=== PATIENT | male | born 1990 | race Caucasian/White ===

== ENCOUNTER → 2024-07-09 14:24 | Outpatient (AMB) | payer OTHER, SELFPAY ==
--- NOTE | 2024-07-09 14:26 | A.OFFVIS_ITS ---
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 She helped us with interpretation today. He complains on pain in the lower back with radiation to the left lower extremity. He reports that his pain is 8/10 and he has numbness corresponding to the pain sensation. He reports pain spreading in the lateral and posterior surfaces of the thigh and the lower leg to the level of the ankle but not below that level. 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 He was evaluated in [facility] and severe disc protrusion with spinal canal stenosis was found on the MRI at L4-[address] Ирина Gonzales performed laminotomy and diskectomy for this patient after the procedure the MRI was free from nerve root compressions, there were no spinal canal stenosis. There are some scar tissues at the area of the surgery. The full report of the MRI dictated as below. Dr. Gonzales referred patient to me with diagnosis of sacroiliitis left sacroiliac joint pain. Because of his pain this patient can not sleep normally he can not do daily activities he can take care of himself, but he can not function normally. Currently he is unemployed his case is workman's comp case. He is currently taking oxycodone 5 mg twice a day prescribed by PCP to control his pain. He reports his pain in terms of tissue damage as hurting radiating and numbing sensation. He had extensive physical therapy after surgery he had images MRI of the lumbar spine image dictation is available. He never had any injections in the past. His past medical history significant for asthma and obstructive sleep apnea. He uses CPAP machine at night. He surgical history significant for laminotomy L4-5 and history of hernia repair as a child. He denies smoking cigarettes denies drinking alcohol admits drinking soda and he admits cannabis 3 to 4 times a day. [facility] Medical History (Updated 07/09/24 @ 16:34 by Carlos Slater MD) RLS (restless legs syndrome) Obstructive sleep apnea Lumbar disc herniation with radiculopathy Anxiety and depression GERD (gastroesophageal reflux disease) Surgical History (Updated 07/09/24 @ 14:28 by Lorenza Quiroz) H/O lumbar discectomy (~2023) Social History (Updated 07/09/24 @ 14:30 by Lorenza Quiroz) Use of substances other than those prescribed or required for medical reasons: Yes Substance Use Type: Marijuana Review of Systems Const Reports no additional complaints ENT Reports Normal hearing present Card Reports no additional complaints Resp Reports as per HPI GI Reports no additional complaints Reports no additional complaints Musc Reports as per HPI Neuro Reports no additional complaints, Reports Normal hearing present, Denies Abno rmal speech present, Denies confusion and Denies Sensory deficit (Neuro) Psych Reports no additional complaints and Denies confusion Physical Exam Vital Signs: Last Vital Signs Pulse 84 07/09/24 14:35 BP 180/87 H 07/09/24 14:35 BMI result Body Mass Index 42.3 Const General: no acute distress; No confusion Nutritional Appearance: overweight Orientation/consciousness: patient oriented x3 and No confusion Eyes General: appearance normal, both eyes and all related structures Pupils: Equal, round and reactive pupils present EOM: EOMs intact bilaterally Neck Neck: Yes full ROM Chest Chest palpation & inspection: normal inspection of the chest Resp Effort & Inspection: normal respiratory effort, able to speak in complete sentences, normal respiratory pattern, no audible wheezes and no cough Cardio Jugular venous distension: no JVD GI Inspection: Yes normal to inspection Back/Spine/Pelvis Other: Able to stand on bilateral tiptoes and bilateral heels, reports that left lower extremity sometimes gives up under him. SLR is equivocal on the left and negative on the right. Olayinka test, pelvic compression test, thigh thrust test, 14 finger test are all positive on the left. Those tests are negative on the right. Tenderness on palpation in projection of the mid of the sacral spine. No tenderness on palpation in the lumbar paraspinal spinal region. Loading test is positive on the left and negative on the right. Negative percussion of the lumbar spine. Valsalva maneuver does not aggravate his pain. Neuro General: patient oriented x3, gait normal and No confusion Cranial nerves: Yes CN's II-XII intact bilaterally, Yes Equal, round and reactive pupils present, Yes Normal hearing present and Yes Ability to bilaterally elevate shoulders present Speech: No Abnormal speech present Gait exam (Neuro): Normal gait present Motor exam (neuro): 5/5 motor strength present throughout Sensory Exam: No Sensory deficit (Neuro) Extrem General: No pedal edema Psych Speech and movement: Normal speech and movement present Affect: normal affect Attitude: cooperative Thought process: Normal thought process present Thought content: Normal thought content present Insight: Good insight present (Psych) Judgement: Good judgement present (Psych) Results Reviewed Results Reviewed: MRI of the lumbar spine with and without contrast 05/04/2024. Findings bones: Normal marrow signal is noted. Surgical changes that suggestive of the left-sided laminotomy at L4-5 level. Expected enhancement is noted in this region that likely represents granulation tissue. Cord: The cord appears normal. Facets minimal degenerative changes of the facet described below. Soft tissue visible soft tissues appear within normal limits. No regular enhancement is noted. Lumbar spine level: L1-L2: Appears normal without significant stenosis. L2-L3: Appears normal without significant stenosis. L3-L4: Minimal degenerative disc bulge with mild spinal canal stenosis. Minimal bilateral foraminal stenosis. L4-5: Surgical suture changes suggestive of prior left-sided laminotomy. Degenerative disc bulge and mild degenerative changes of the facets with minimal spinal canal stenosis. No irregular enhancement is noted. Degenerative changes cause minimal bilateral foraminal stenosis. L5-S1: Degenerative disc bulge with small left paracentral protrusion. Minimal hypertrophic degenerative changes of the facets. No significant spinal canal stenosis. Finding cause minimal left-sided and mild left-sided foraminal stenosis. Impression degenerative changes in the lower lumbar spine with evidence of prior left-sided laminotomy at L4-5 as described. Assessment & Plan Assessment & Plan (1) Spondylosis of lumbar region without myelopathy or radiculopathy: Code(s): M47.816 - Spondylosis without myelopathy or radiculopathy, lumbar region Category: Medical (2) Sacroiliitis: Code(s): M46.1 - Sacroiliitis, not elsewhere classified Category: Medical (3) Sacroiliac joint dysfunction of left side: Code(s): M53.3 - Sacrococcygeal disorders, not elsewhere classified Category: Medical (4) Chronic pain syndrome: Code(s): G89.4 - Chronic pain syndrome Category: Medical (5) Disc degeneration, lumbar: Code(s): M51.369 - Other intervertebral disc degeneration, lumbar region without mention of lumbar back pain or lower extremity pain Category: Medical Plan Physical exam is changes as well as MRI points out on the stability of this patient suffering from either spondylotic facetogenic pain versus dysfunction of the left sacroiliac joint. We agreed that I will schedule this patient for diagnostic sacroiliac joint injection left. If this will not help this patient's pain I will try to perform medial branch block L2, L3, L4, dorsal ramus L5 on the left. I will see this patient after the sacroiliac joint injection. At that time we will discuss possibility of further treatment of sacroiliac joint pathology versus diagnostic him with medial branch blocks on the left. Patient Instructions: I here by testify that I spent 48 minutes in conversation with this patient as well as planning his care and organizing this note. Coding Level of Care Code New Pt Level 4 (53251) Diagnoses Spondylosis of lumbar region without myelopathy or radiculopathy M47.816 Sacroiliitis M46.1 Sacroiliac joint dysfunction of left side M53.3 Chronic pain syndrome G89.4 Disc degeneration, lumbar M51.369
== END | disposition home or self-care (01) ==
PROVIDERS: PCP Student in an Organized Health Care Education/Training Program; Referring Provider Neurological Surgery; Visit Provider Anesthesiology
CPT/HCPCS: 99204

== ENCOUNTER → 2024-07-09 14:24 | Outpatient (BNVA) | payer OTHER, SELFPAY | PROVIDERS: PCP Student in an Organized Health Care Education/Training Program; Referring Provider Neurological Surgery; Visit Provider Anesthesiology | DX: M47.816 Spondylosis without myelopathy or radiculopathy, lumbar region (principal); G47.33 Obstructive sleep apnea (adult) (pediatric); M46.1 Sacroiliitis, not elsewhere classified; M53.3 Sacrococcygeal disorders, not elsewhere classified; G89.4 Chronic pain syndrome; M51.369 Other intervertebral disc degeneration, lumbar region without mention of lumbar back pain or lower extremity pain; Z79.891 Long term (current) use of opiate analgesic; Z99.89 Dependence on other enabling machines and devices | CPT/HCPCS: 99202 ==

== ENCOUNTER 2024-10-13 06:23 | Outpatient (REF) | payer OTHER, SELFPAY ==
--- NOTE | ~2024-10-13 | FL_ITS ---
EXAMINATION: FL GUIDANCE ONLY HISTORY: M53.3 - Sacrococcygeal disorders, not elsewhere classified COMPARISON: None available. TECHNIQUE: Fluoroscopy time: 0.1 minutes. Cumulative Dose: 2.4 mGy. DAP: 0.0416 mGym2 Images: 2. FINDINGS: Fluoroscopic spot films of the left hemipelvis demonstrate a needle and contrast material in the region of the sacroiliac joint. FL/FL guidance in treatment room IMPRESSION: Fluoroscopy during procedure. Please see procedure report for additional information. Electronically signed by: Rashard Hunt MD 10/13/2024 02:54 PM EDT
--- OUTSIDE RECORDS SUMMARY | 2024-10-13 06:26 | XMS_ITS | Clinical Summary ---
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 Mike Mariano Account Type Relation to Patient Date of Phone Billing Address Workers Comp Self [address] [place] [address] [email or web address] Care Teams Liner Man Relationship Specialty Start Date End Date Ana Cazares NP [address] [place] [address], [address] [place] [address] PCP - General 03/20/24
== END 2024-10-13 06:24 | disposition home or self-care (01) ==
LOC: CF 06:23
PROVIDERS: Visit Provider Anesthesiology
DX: M53.3 Sacrococcygeal disorders, not elsewhere classified (principal); M47.816 Spondylosis without myelopathy or radiculopathy, lumbar region; M46.1 Sacroiliitis, not elsewhere classified; G89.4 Chronic pain syndrome; M51.369 Other intervertebral disc degeneration, lumbar region without mention of lumbar back pain or lower extremity pain
CPT/HCPCS: 27096; J2003; J2795; Q9967

== ENCOUNTER 2024-10-13 13:38 | Outpatient (AMB) | payer OTHER, SELFPAY ==
[2024-10-13 13:46] VITALS: BP 122/74; PULSE 70; RESP 16; O2SAT 98
--- NOTE | 2024-10-13 13:46 | MHC.OFFVIS ---
Vital Signs 10/13/24 13:46 10/13/24 14:16 BP 122/74 140/88 H Blood Pressure Location Lt brachial Lt brachial Position Sitting Sitting Respiration 16 16 Pulse 70 83 Pulse Source Pulse Oximeter Pulse Oximeter Pulse Oximetry (%) 98 97 Oxygen Delivery Method Room Air Room Air Intake Visit Reasons: LEFT DIAGNOSTIC SIJ INJECTION Digital Program Manager Required: Yes Digital Program Manager Services: Digital Program Manager Offered & Declined Digital Program Manager Name: Prefers girlfriend to translat Allergies ibuprofen Allergy (Unknown, Verified 10/13/24 13:47) Unknown Medication List - Last Reconciled 10/13/24 by Mily Guzmán LPN albuterol sulfate mg inhalation bupropion HCl XL mg PO DAILY famotidine mg PO gabapentin mg PO ipratropium-albuterol 20-100 mcg/actuation (Combivent Respimat) inhalation loratadine mg PO DAILY montelukast mg PO DAILY oxycodone mg PO PFSH Medical History (Updated 07/09/24 @ 16:34 by Carlos Slater MD) RLS (restless legs syndrome) Obstructive sleep apnea Lumbar disc herniation with radiculopathy Anxiety and depression GERD (gastroesophageal reflux disease) Surgical History (Updated 07/09/24 @ 14:28 by Lorenza Quiroz) H/O lumbar discectomy (~2023) Social History (Updated 07/09/24 @ 14:30 by Lorenza Quiroz) Substance Use Type: Marijuana Physical Exam Vital Signs: Last Vital Signs Pulse 83 10/13/24 14:16 Resp 16 10/13/24 14:16 BP 140/88 H 10/13/24 14:16 Pulse Ox 97 10/13/24 14:16 Oxygen Delivery Method Room Air 10/13/24 14:16 Assessment & Plan Assessment & Plan (1) Spondylosis of lumbar region without myelopathy or radiculopathy: Code(s): M47.816 - Spondylosis without myelopathy or radiculopathy, lumbar region Category: Medical (2) Sacroiliitis: Code(s): M46.1 - Sacroiliitis, not elsewhere classified Category: Medical (3) Sacroiliac joint dysfunction of left side: Code(s): M53.3 - Sacrococcygeal disorders, not elsewhere classified Category: Medical (4) Chronic pain syndrome: Code(s): G89.4 - Chronic pain syndrome Category: Medical (5) Disc degeneration, lumbar: Code(s): M51.369 - Other intervertebral disc degeneration, lumbar region without mention of lumbar back pain or lower extremity pain Category: Medical Plan Left diagnostic sacroiliac joint injection Informed consent was explained thoroughly to the patient.? All questions about benefits and risks for the procedure were answered. Patient came to the operating room she was positioned prone on the operating table with the pillow under her abdomen.? Time-out was performed delineating correct site and side of the procedure name and date of of the patient. Her lower back and buttocks was prepped with ChloraPrep prepped and draped with sterile towels.C-arm was brought over the operating field and sq picture of patient's pelvis was demonstrated on the screen.? For the left joint tilting C-arm contralateral to the site of the joint of the patient the most posterior portion of the joints were superimposed of the anterior portion of the joint . Skin was injected in the projection of the joint slightly medial to the location of the joint with 25 gauge 1/2 inch needle using local lidocaine 2% mixed with ropivacaine 0.5% 1 After that 22 gauge 3.5 inch needle was driven to the left joint in tunnel vision fashion.? When needle entered the joint capsule injection of the contrast was performed demonstrating intra-articular and minimally periarticular spread of the contrast.? After that of ropivacaine 0.5% 5 mL was injected into each joint.? Upon completion of the injections the needles were removed and pressure were applied.? Sterile dressing was applied Coding Level of Care Code Procedure Only Diagnoses Spondylosis of lumbar region without myelopathy or radiculopathy M47.816 Sacroiliitis M46.1 Sacroiliac joint dysfunction of left side M53.3 Chronic pain syndrome G89.4 Disc degeneration, lumbar M51.369
[2024-10-13 14:16] VITALS: BP 140/88; PULSE 83; RESP 16; O2SAT 97
--- OUTSIDE RECORDS SUMMARY | 2024-10-13 14:45 | XMS_ITS | Clinical Summary ---
Author Organization 175 [facility] Address [address] [place] [address] Phone Care Team Providers Care Insurance Salesperson Name Role Phone Ana Cazares NP Primary Care Provider [phone] Allergies Active Allergy Reactions Criticality Noted Date [...] has plateaued and his physical therapy at [facility] was put on hold because of lack [...] AM EDT Office Visit General Surgery - [place] [address] [facility] [address] [place] [phone] Luis Birch, 09/25/2024 7:33 AM EDT Anesthesia Event [facility] [place] [address] [place] [phone] Stevie Tim MD 09/25/2024 7:30 AM EDT - 09/25/2024 9:[address] [facility] [place] [address] [place] [phone] Luis Birch, DO LAPAROSCPOPIC CHOLECYSTECTOMY [[id number] (CPT??)] 09/25/2024 5:59 AM EDT - 09/25/2024 10:33 AM EDT Hospital Encounter [facility] Main OR [address] [place] [phone] Luis Birch, DO Symptomatic cholelithiasis Discharge Disposition: Home or Self Care 09/08/2024 Telephone General [address] [phone] Luis Birch, DO Prior Authorization (09/25/24 Dr. Luis Birch) 09/07/2024 2:00 PM EDT Consult [address] [phone] Luis Birch, DO Symptomatic cholelithiasis (Primary Dx) 08/30/2024 9:19 AM EDT - 08/30/2024 1:49 PM EDT Emergency [facility] Emergency [address] [place] [phone] Right upper quadrant abdominal pain (Primary Dx); Calculus of gallbladder without cholecystitis without obstruction Discharge Disposition: Home or Self Care 08/21/2024 10:59 PM EDT - 08/22/2024 5:09 AM EDT Emergency [facility] Emergency [address] [place] [phone] Discharge Disposition: Left Against Medical Advice from [...] ENDOTRACHEAL(NO CHARGE) Routine 09/25/2024 7:56 AM EDT [place] LAPAROSCOPY SURGICAL CHOLECYSTECTOMY 09/25/2024 7:32 AM EDT [...] cholelithiasis and cholesterolosis. 09/28/2024 1:04 PM EDT [facility] Gross Description A. Gallbladder, : Labeled [...] and the adventitial margin is inked green. Rehab Nurse sections are submitted in one cassette including gallbladder (fundus, body and neck), duct margin (inked red), and cross section adjacent to duct margin (inked blue), five pieces. ANTONI 09/28/2024 1:04 PM EDT [facility] Disclaimer Unless otherwise specified, all tissue is 10% NB formalin fixed and paraffin embedded. 09/28/2024 1:04 PM EDT [facility] Tissue Gallbladder structure / Unknown 09/25/2024 8:29 AM EDT 09/25/2024 11:49 AM EDT us Luis Birch DO LAB PATHOLOGY ORDERABLES Final Result [facility]) [facility] [address] [place] [address], * TH AN ENDOTRACHEAL(NO CHARGE) (09/25/2024 7:56 [...] K/mcL LAB HEMETOLOGY METHOD 08/30/2024 9:58 AM [facility] RBC 4.90 4.50 - 5.50 M/mcL LAB HEMETOLOGY METHOD 08/30/2024 9:58 AM [facility] Hemoglobin 15.7 13.5 - 17.5 g/dL LAB HEMETOLOGY METHOD 08/30/2024 9:58 AM [facility] Hematocrit 45.9 42.0 - 54.0 % LAB HEMETOLOGY METHOD 08/30/2024 9:58 AM [facility] MCV 93.9 79.0 - 98.0 FL LAB HEMETOLOGY METHOD 08/30/2024 9:58 AM [facility] MCH 32.1(H) 27.0 - 32.0 pcg LAB HEMETOLOGY METHOD 08/30/2024 9:58 AM [facility] MCHC 34.2 32.0 - 37.0 g/dL LAB HEMETOLOGY METHOD 08/30/2024 9:58 AM [facility] RDW 12.2 11.0 - 15.0 % LAB HEMETOLOGY METHOD 08/30/2024 9:58 AM [facility] Platelets 377 130 - 400 K/mcL LAB HEMETOLOGY METHOD 08/30/2024 9:58 AM EDT [facility] MPV 9.4 7.0 - 11.0 FL LAB HEMETOLOGY METHOD 08/30/2024 9:58 AM [facility] NRBC 0.0 <1.0 % LAB HEMETOLOGY METHOD 08/30/2024 9:58 AM [facility] NRBC Absolute 0.00 <0.10 K/mcL LAB HEMETOLOGY METHOD 08/30/2024 9:58 AM [facility] Neutrophils Relative 64.7 % LAB HEMETOLOGY METHOD 08/30/2024 9:58 AM [facility] Lymphocytes Relative 22.2 % LAB HEMETOLOGY METHOD 08/30/2024 9:58 AM [facility] Monocytes Relative 10.3 % LAB HEMETOLOGY METHOD 08/30/2024 9:58 AM [facility] Eosinophils Relative 2.1 % LAB HEMETOLOGY METHOD 08/30/2024 9:58 AM [facility] Basophils Relative 0.3 % LAB HEMETOLOGY METHOD 08/30/2024 9:58 AM [facility] Immature Granulocytes Relative 0.4 % LAB HEMETOLOGY METHOD 08/30/2024 9:58 AM [facility] Neutrophils Absolute 6.78 1.50 - 7.00 K/mcL LAB HEMETOLOGY METHOD 08/30/2024 9:58 AM [facility] Lymphocytes Absolute 2.33 1.00 - 5.00 K/mcL LAB HEMETOLOGY METHOD 08/30/2024 9:58 AM [facility] Monocytes Absolute 1.08(H) 0.20 - 1.00 K/mcL LAB HEMETOLOGY METHOD 08/30/2024 9:58 AM EDT [facility] Eosinophils Absolute 0.22 0.00 - 0.50 K/mcL LAB HEMETOLOGY METHOD 08/30/2024 9:58 AM EDT [facility] Basophils Absolute 0.03 0.00 - 0.20 K/mcL LAB HEMETOLOGY METHOD 08/30/2024 9:58 AM EDT [facility] Immature Granulocytes Absolute 0.04(H) 0.00 - 0.03 K/mcL LAB HEMETOLOGY METHOD 08/30/2024 9:58 AM EDT [facility] Blood Venous blood specimen / Unknown Venipuncture / Unknown 08/30/2024 9:14 AM EDT 08/30/2024 9:32 AM EDT Willa Goel Holley LAB BLOOD ORDERABLES Anni l Result [facility] [address] [place] [address], [place] [phone] * Lipase (08/30/2024 9:14 AM EDT) Only the most recent of2 resultswithin the time period is included. Lipase 32 13 - 75 unit/L LAB CHEMISTRY METHOD 08/30/2024 10:01 AM EDT [facility] Blood Venous blood specimen / Unknown Venipuncture / Unknown 08/30/2024 9:14 AM EDT 08/30/2024 9:32 AM EDT Agilis Systemscintia Goel SurgeryEdu DO LAB BLOOD ORDERABLES Anni l Result [facility] [address] [place] [address], [place] [phone] * (ABNORMAL) Comprehensive metabolic panel (08/30/2024 9:14 AM EDT) Only the most recent of2 resultswithin the time period is included. Sodium 141 133 - 145 mmol/L LAB CHEMISTRY METHOD 08/30/2024 10:01 AM [facility] Potassium 4.5 3.5 - 5.5 mmol/L LAB CHEMISTRY METHOD 08/30/2024 10:01 AM [facility] Chloride 105 96 - 110 mmol/L LAB CHEMISTRY METHOD 08/30/2024 10:01 AM [facility] CO2 28 21 - 32 mmol/L LAB CHEMISTRY METHOD 08/30/2024 10:01 AM [facility] Anion Gap 8 3 - 11 LAB CHEMISTRY METHOD 08/30/2024 10:01 AM [facility] Glucose 129(H) 70 - 100 mg/dL LAB CHEMISTRY METHOD 08/30/2024 10:01 AM [facility] BUN 13 5 - 25 mg/dL LAB CHEMISTRY METHOD 08/30/2024 10:01 AM [facility] Creatinine 1.10 0.70 - 1.30 mg/dL LAB CHEMISTRY METHOD 08/30/2024 10:01 AM [facility] eGFR 91 >=60 mL/min/1. 73m2 LAB CHEMISTRY METHOD 08/30/2024 10:01 AM [facility] Comment:Calculation based on the??Chronic Kidney Disease Epidemiology Collaboration (CKD-EPI) equation refit??without adjustment for race. BUN/Creatinine Ratio 11.8 LAB CHEMISTRY METHOD 08/30/2024 10:01 AM [facility] Calcium 9.8 8.5 - 10.5 mg/dL LAB CHEMISTRY METHOD 08/30/2024 10:01 AM [facility] AST (SGOT) 17 10 - 42 unit/L LAB CHEMISTRY METHOD 08/30/2024 10:01 AM [facility] ALT (SGPT) 45 10 - 60 unit/L LAB CHEMISTRY METHOD 08/30/2024 10:01 AM EDT [facility] Alkaline Phosphatase 127(H) 42 - 121 unit/L LAB CHEMISTRY METHOD 08/30/2024 10:01 AM EDT [facility] Total Protein 7.7 6.0 - 8.0 g/dL LAB CHEMISTRY METHOD 08/30/2024 10:01 AM EDT [facility] Albumin 4.1 3.2 - 5.0 g/dL LAB CHEMISTRY METHOD 08/30/2024 10:01 AM EDT [facility] Total Bilirubin 0.4 0.0 - 1.4 mg/dL LAB CHEMISTRY METHOD 08/30/2024 10:01 AM EDT [facility] Blood Venous blood specimen / Unknown Venipuncture / Unknown 08/30/2024 9:14 AM EDT 08/30/2024 9:32 AM EDT Willa Holley DO LAB BLOOD ORDERABLES Anni l Result [facility] [address] [place] [address], [place] [phone] * ECG-Annotated (08/24/2024) us Provider Onbase MD ECG ORDERABLES Final Result * ECG 12 lead (08/22/2024 1:23 AM EDT) Only the most recent of2 resultswithin the time period is included. Ventricular Rate ECG 61 BPM GEMUSE Atrial Rate 61 BPM GEMUSE P-R Interval 150 ms GEMUSE QRS Duration 86 ms GEMUSE Q-T Interval 362 ms GEMUSE QTc 364 ms GEMUSE P Wave [place] 43 degrees GEMUSE R [place] 60 degrees GEMUSE T [place] 28 degrees GEMUSE ECG Interpretation Normal sinus rhythm Normal ECG When compared with ECG of 21-AUG-2024 23:12, (unconfirmed) No significant change was found Confirmed by Dwight COX JOHN ([id number]) on 08/22/2024 11:35:24 AM GEMUSE 08/22/2024 1:23 AM EDT 08/22/2024 11:35 AM EDT Mil Lam MD ECG ORDERABLES Final Result Performing Organization Address [facility] de Phone Number BETHUSE * Troponin I high sensitivity (08/22/2024 1:20 AM EDT) Only the most recent of2 resultswithin the time period is included. High Sensitivity Troponin I 6 <=79 ng/L LAB CHEMISTRY METHOD 08/22/2024 1:59 AM EDT [facility] Blood Venous blood specimen / Unknown Venipuncture / Unknown 08/22/2024 1:20 AM EDT 08/22/2024 1:30 AM EDT Narrative [facility] - 08/22/2024 1:59 AM EDT High levels of biotin in samples may falsely decrease hsTroponin values. ??Use caution when interpreting hsTroponin results in patients taking biotin who exhibit renal impairment (eGFR <60) or in patients taking more than 20 mg/day of biotin. Mil Lam MD LAB BLOOD ORDERABLES Final Resu lt Performing Organization Address [facility] de Phone Number [facility] [address] [place] [address], * XR Chest 2 Views (08/21/2024 11:54 PM EDT) Anatomical Region Laterality Modality Body Radiographic Samia ging 08/22/2024 9:23 AM EDT Impressions 08/22/2024 9:24 AM EDT Impression: No active pulmonary process identified. Telerad ZACH ([id number]) -------- FINAL REPORT -------- Dictated By: Chey Chilel Dictated Date: 08/22/2024 09:23 ET Assigned Physician: Chey Chilel Reviewed and Electronically Signed By: Chey Chilel Signed Date: 08/22/2024 09:24 ET Workstation ID: [id number] Transcribed By: Self Edit Transcribed Date: 08/22/2024 [...] No active pulmonary process identified. Telerad PA ([id number]) -------- FINAL REPORT -------- Dictated By: Chey Chilel Dictated Date: 08/22/2024 09:23 ET Assigned Physician: Chey Chilel Reviewed and Electronically Signed By: Chey Chilel Signed Date: 08/22/2024 09:24 ET Workstation ID: [id number] Transcribed By: Self Edit Transcribed Date: 08/22/2024 09:23 ET us Mil Lam MD IMG XR PROCEDURES Final Result * B-type natriuretic peptide (08/21/2024 11:18 PM EDT) BNP 9 <=100 pcg/mL LAB CHEMISTRY METHOD 08/22/2024 12:05 AM EDT [facility] Blood Venous blood specimen / Unknown Venipuncture / Unknown 08/21/2024 11:18 PM EDT 08/21/2024 11:26 PM EDT us Mil Lam MD LAB BLOOD ORDERABLES Final Resu lt Performing Organization Address [facility]/ZIP Co de Phone Number [facility] [address] [place] [address], [place] [phone] * (ABNORMAL) Magnesium (08/21/2024 11:18 PM EDT) Magnesium 1.7(L) 1.9 - 2.6 mg/dL LAB CHEMISTRY METHOD 08/21/2024 11:57 PM EDT [facility] Blood Venous blood specimen / Unknown Venipuncture / Unknown 08/21/2024 11:18 PM EDT 08/21/2024 11:25 PM EDT [facility] Raisa Lam MD LAB BLOOD ORDERABLES Final Resu lt Performing Organization Address [facility]/ZIP Co de Phone Number [facility] [address] [place] [address], [place] [phone] from Last 3 Months Insurance * Guarantor: Mike Mariano Account Type Relation to Patient Date of Phone Billing Address Personal/Family Self [address] [place] [id number] [facility] [employer] * Guarantor: Mike Mariano Account Type Relation to Patient Date of Phone Billing Address Workers Comp Self [address] [place] [address] [employer] Care Teams Insurance Salesperson Relationship Specialty Start Date End Date Ana Cazares NP [address] [place] [address], [address] [place] [address] PCP - General 03/20/24
== END 2024-10-13 14:16 | disposition home or self-care (01) ==
LOC: HO.PMCPRC 13:38
PROVIDERS: PCP Student in an Organized Health Care Education/Training Program; Visit Provider Anesthesiology
DX: M46.1 Sacroiliitis, not elsewhere classified (principal); M53.3 Sacrococcygeal disorders, not elsewhere classified; M47.816 Spondylosis without myelopathy or radiculopathy, lumbar region; G89.4 Chronic pain syndrome; M51.369 Other intervertebral disc degeneration, lumbar region without mention of lumbar back pain or lower extremity pain
CPT/HCPCS: 27096

== ENCOUNTER 2024-10-15 12:50 | Outpatient (AMB) | payer OTHER, SELFPAY ==
--- NOTE | 2024-10-15 12:53 | MHC.OFFVIS ---
Vital Signs 10/15/24 12:56 Height 5 ft 8 in Weight 258 lb BMI 39.2 BP 162/77 H Blood Pressure Location Lt brachial Position Sitting Pulse 82 Pulse Source Pulse Oximeter Intake Visit Reasons: LEFT DIAGNOSTIC SIJ INJECTION Intake Note: Pain today 8/10 Pediatric Anesthesiologist Required: Yes Pediatric Anesthesiologist Language: Lunchroom Attendant Name: spouse Accompanied by: Spouse Allergies ibuprofen Allergy (Unknown, Verified 10/15/24 12:57) Unknown HPI Comments Details: Mike is back in my office still complaining on the pain in the lower back with radiation down to the left lower extremity however today he reports that his pain goes all the way down to the ankle however not to the foot. He had diagnostic sacroiliac joint injection which unfortunately did not result in any pain improvement. Last time I offered him diagnostic medial branch block, I still believe that we should stay on course and perform diagnostic medial branches L2, L3, L4, dorsal ramus L5 on the left. If this will not be helping the patient's pain transforaminal L5-S1 and L4-5 epidural steroid injections on the left could be performed trying to alleviate his pain which at that time would be deemed coming from postlaminectomy syndrome. He presents today in my office accompanied by his girlfriend who is fluent in both [place]an and Polish. She helped us with interpretation today. Prior: He complains on pain in the lower back with radiation to the left lower extremity. He reports that his pain is 8/10 and he has numbness corresponding to the pain sensation. He reports pain spreading in the lateral and posterior surfaces of the thigh and the lower leg to the level of the ankle but not below that level. 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 He was evaluated in [facility] and severe disc protrusion with spinal canal stenosis was found on the MRI at L4-[address] Ирина Gonzales performed laminotomy and diskectomy for this patient after the procedure the MRI was free from nerve root compressions, there were no spinal canal stenosis. There are some scar tissues at the area of the surgery. The full report of the MRI dictated as below. Dr. Gonzales referred patient to me with diagnosis of sacroiliitis left sacroiliac joint pain. Currently he is unemployed his case is workman's comp case. He is currently taking oxycodone 5 mg twice a day prescribed by PCP to control his pain. He reports his pain in terms of tissue damage as hurting radiating and numbing sensation. He had extensive physical therapy after surgery he had images MRI of the lumbar spine image dictation is available. He never had any injections in the past. His past medical history significant for asthma and obstructive sleep apnea. [facility] Medical History (Updated 07/09/24 @ 16:34 by Carlos Slater MD) RLS (restless legs syndrome) Obstructive sleep apnea Lumbar disc herniation with radiculopathy Anxiety and depression GERD (gastroesophageal reflux disease) Surgical History (Updated 07/09/24 @ 14:28 by Lorenza Quiroz) H/O lumbar discectomy (~2023) Social History (Updated 07/09/24 @ 14:30 by Lorenza Quiroz) Substance Use Type: Marijuana Review of Systems Const All systems reviewed & are unremarkable except as noted in HPI and below ENT Reports Normal hearing present Neuro Reports Normal hearing present, Denies Abnormal speech present, Denies confusion and Denies Sensory deficit (Neuro) Psych Denies confusion Physical Exam Const General: no acute distress; No confusion Nutritional Appearance: overweight Orientation/consciousness: patient oriented x3 and No confusion Eyes General: appearance normal, both eyes and all related structures Pupils: Equal, round and reactive pupils present EOM: EOMs intact bilaterally Neck Neck: Yes full ROM Chest Chest palpation & inspection: normal inspection of the chest Resp Effort & Inspection: normal respiratory effort, able to speak in complete sentences, normal respiratory pattern, no audible wheezes and no cough Cardio Jugular venous distension: no JVD GI Inspection: Yes normal to inspection Back/Spine/Pelvis Other: Able to stand on bilateral tiptoes and bilateral heels, able to lift the 1st big toe in separation of the rest of the toes bilaterally, reports that left lower extremity sometimes gives up under him. SLR is equivocal on the left and negative on the right. Olayinka test, pelvic compression test, thigh thrust test, 14 finger test are all positive on the left. Those tests are negative on the right. Tenderness on palpation in projection of the mid of the sacral spine. No tenderness on palpation in the lumbar paraspinal spinal region. Loading test is positive on the left and negative on the right. Negative percussion of the lumbar spine. Valsalva maneuver does not aggravate his pain. Neuro General: patient oriented x3, gait normal and No confusion Cranial nerves: Yes CN's II-XII intact bilaterally, Yes Equal, round and reactive pupils present, Yes Normal hearing present and Yes Ability to bilaterally elevate shoulders present Speech: No Abnormal speech present Gait exam (Neuro): Normal gait present Motor exam (neuro): 5/5 motor strength present throughout Sensory Exam: No Sensory deficit (Neuro) Extrem General: No pedal edema Psych Speech and movement: Normal speech and movement present Affect: normal affect Attitude: cooperative Thought process: Normal thought process present Thought content: Normal thought content present Insight: Good insight present (Psych) Judgement: Good judgement present (Psych) Results Reviewed Results Reviewed: MRI of the lumbar spine with and without contrast 05/04/2024. Findings bones: Normal marrow signal is noted. Surgical changes that suggestive of the left-sided laminotomy at L4-5 level. Expected enhancement is noted in this region that likely represents granulation tissue. Cord: The cord appears normal. Facets minimal degenerative changes of the facet described below. Soft tissue visible soft tissues appear within normal limits. No regular enhancement is noted. Lumbar spine level: L1-L2: Appears normal without significant stenosis. L2-L3: Appears normal without significant stenosis. L3-L4: Minimal degenerative disc bulge with mild spinal canal stenosis. Minimal bilateral foraminal stenosis. L4-5: Surgical suture changes suggestive of prior left-sided laminotomy. Degenerative disc bulge and mild degenerative changes of the facets with minimal spinal canal stenosis. No irregular enhancement is noted. Degenerative changes cause minimal bilateral foraminal stenosis. L5-S1: Degenerative disc bulge with small left paracentral protrusion. Minimal hypertrophic degenerative changes of the facets. No significant spinal canal stenosis. Finding cause minimal left-sided and mild left-sided foraminal stenosis. Impression degenerative changes in the lower lumbar spine with evidence of prior left-sided laminotomy at L4-5 as described. Assessment & Plan Assessment & Plan (1) Spondylosis of lumbar region without myelopathy or radiculopathy: Code(s): M47.816 - Spondylosis without myelopathy or radiculopathy, lumbar region Category: Medical (2) Sacroiliitis: Code(s): M46.1 - Sacroiliitis, not elsewhere classified Category: Medical (3) Sacroiliac joint dysfunction of left side: Code(s): M53.3 - Sacrococcygeal disorders, not elsewhere classified Category: Medical (4) Chronic pain syndrome: Code(s): G89.4 - Chronic pain syndrome Category: Medical (5) Disc degeneration, lumbar: Code(s): M51.369 - Other intervertebral disc degeneration, lumbar region without mention of lumbar back pain or lower extremity pain Category: Medical Plan So diagnostic sacroiliac joint injection resulted in no pain improvement. As I was planning in the past I would like to perform left-sided L2, L3, L4, dorsal ramus L5 medial branch block trying to find out whether facet joint arthropathy is the pain generators for this patient. If this will not be helping the patient I will try epidural steroid injection L4-5, L5-S1 on the left. Only if this will result in failure I will offer patient neuromodulation. Patient Instructions: I here by testify that I spent 30 minutes in conversation with this patient as well as planning his care evaluating prior diagnostic studies and organizing this note. Patient is significant other was helpful to maintain this conversation with patient in [place]an. Coding Level of Care Code Est Pt Level 4 (95429) Diagnoses Spondylosis of lumbar region without myelopathy or radiculopathy M47.816 Sacroiliitis M46.1 Sacroiliac joint dysfunction of left side M53.3 Chronic pain syndrome G89.4 Disc degeneration, lumbar M51.369
[2024-10-15 12:56] VITALS: BP 162/77; PULSE 82; BMI 39.2
--- OUTSIDE RECORDS SUMMARY | 2024-10-15 13:27 | XMS_ITS | Clinical Summary ---
Author Organization [address] [facility] Address [address] [place] [address] Phone Care Team Providers Care Embosser Operator Name Role Phone Ana Cazares NP Primary Care Provider Allergies Active Allergy Reactions Criticality Noted Date [...] has plateaued and his physical therapy at [facility] was put on hold because of [...] AM EDT Office Visit General Surgery - [place] [address] [facility] [address] [place] [phone] Luis Birch, 09/25/2024 7:33 AM EDT Anesthesia Event [facility] [place] [address] [place] [phone] Stevie Tim MD 09/25/2024 7:30 AM EDT - 09/25/2024 9:[address] [facility] [place] [address] [place] [phone] Luis Birch, DO LAPAROSCPOPIC CHOLECYSTECTOMY [20042 (CPT??)] 09/25/2024 5:59 AM EDT - 09/25/2024 10:33 AM EDT Hospital Encounter [facility] Main OR [address] [place] [phone] Luis Birch, DO Symptomatic cholelithiasis Discharge Disposition: Home or Self Care 09/08/2024 Telephone General [address] [phone] Luis Birch, DO Prior Authorization (09/25/24 Dr. Luis Birch) 09/07/2024 2:00 PM EDT Consult [address] [phone] Luis Birch, DO Symptomatic cholelithiasis (Primary Dx) 08/30/2024 9:19 AM EDT - 08/30/2024 1:49 PM EDT Emergency [facility] Emergency [address] [place] [phone] Right upper quadrant abdominal pain (Primary Dx); Calculus of gallbladder without cholecystitis without obstruction Discharge Disposition: Home or Self Care 08/21/2024 10:59 PM EDT - 08/22/2024 5:09 AM EDT Emergency [facility] Emergency [address] [place] [phone] Discharge Disposition: Left Against Medical Advice from [...] ENDOTRACHEAL(NO CHARGE) Routine 09/25/2024 7:56 AM EDT [place] LAPAROSCOPY SURGICAL CHOLECYSTECTOMY 09/25/2024 7:32 AM EDT [...] cholelithiasis and cholesterolosis. 09/28/2024 1:04 PM EDT [facility] ([facility] Gross Description A. Gallbladder, : [...] and the adventitial margin is inked green. Auto Research Engineer sections are submitted in one cassette including gallbladder (fundus, body and neck), duct margin (inked red), and cross section adjacent to duct margin (inked blue), five pieces. ANTONI 09/28/2024 1:04 PM EDT [facility] Disclaimer Unless otherwise specified, all tissue is 10% NB formalin fixed and paraffin embedded. 09/28/2024 1:04 PM EDT [facility] Tissue Gallbladder structure / Unknown 09/25/2024 8:29 AM EDT 09/25/2024 11:49 AM EDT us Luis Birch DO LAB PATHOLOGY ORDERABLES Final Result [facility]) [facility] [address] [place] [address], * TH AN ENDOTRACHEAL(NO CHARGE) (09/25/2024 7:56 [...] K/mcL LAB HEMETOLOGY METHOD 08/30/2024 9:58 AM [facility] RBC 4.90 4.50 - 5.50 M/mcL LAB HEMETOLOGY METHOD 08/30/2024 9:58 AM [facility] Hemoglobin 15.7 13.5 - 17.5 g/dL LAB HEMETOLOGY METHOD 08/30/2024 9:58 AM [facility] Hematocrit 45.9 42.0 - 54.0 % LAB HEMETOLOGY METHOD 08/30/2024 9:58 AM [facility] MCV 93.9 79.0 - 98.0 FL LAB HEMETOLOGY METHOD 08/30/2024 9:58 AM [facility] MCH 32.1(H) 27.0 - 32.0 pcg LAB HEMETOLOGY METHOD 08/30/2024 9:58 AM [facility] MCHC 34.2 32.0 - 37.0 g/dL LAB HEMETOLOGY METHOD 08/30/2024 9:58 AM [facility] RDW 12.2 11.0 - 15.0 % LAB HEMETOLOGY METHOD 08/30/2024 9:58 AM [facility] Platelets 377 130 - 400 K/mcL LAB HEMETOLOGY METHOD 08/30/2024 9:58 AM EDT [facility] MPV 9.4 7.0 - 11.0 FL LAB HEMETOLOGY METHOD 08/30/2024 9:58 AM [facility] NRBC 0.0 <1.0 % LAB HEMETOLOGY METHOD 08/30/2024 9:58 AM [facility] NRBC Absolute 0.00 <0.10 K/mcL LAB HEMETOLOGY METHOD 08/30/2024 9:58 AM [facility] Neutrophils Relative 64.7 % LAB HEMETOLOGY METHOD 08/30/2024 9:58 AM [facility] Lymphocytes Relative 22.2 % LAB HEMETOLOGY METHOD 08/30/2024 9:58 AM [facility] Monocytes Relative 10.3 % LAB HEMETOLOGY METHOD 08/30/2024 9:58 AM [facility] Eosinophils Relative 2.1 % LAB HEMETOLOGY METHOD 08/30/2024 9:58 AM [facility] Basophils Relative 0.3 % LAB HEMETOLOGY METHOD 08/30/2024 9:58 AM [facility] Immature Granulocytes Relative 0.4 % LAB HEMETOLOGY METHOD 08/30/2024 9:58 AM [facility] Neutrophils Absolute 6.78 1.50 - 7.00 K/mcL LAB HEMETOLOGY METHOD 08/30/2024 9:58 AM [facility] Lymphocytes Absolute 2.33 1.00 - 5.00 K/mcL LAB HEMETOLOGY METHOD 08/30/2024 9:58 AM [facility] Monocytes Absolute 1.08(H) 0.20 - 1.00 K/mcL LAB HEMETOLOGY METHOD 08/30/2024 9:58 AM EDT [facility] Eosinophils Absolute 0.22 0.00 - 0.50 K/mcL LAB HEMETOLOGY METHOD 08/30/2024 9:58 AM EDT [facility] Basophils Absolute 0.03 0.00 - 0.20 K/mcL LAB HEMETOLOGY METHOD 08/30/2024 9:58 AM EDT [facility] Immature Granulocytes Absolute 0.04(H) 0.00 - 0.03 K/mcL LAB HEMETOLOGY METHOD 08/30/2024 9:58 AM EDT [facility] Blood Venous blood specimen / Unknown Venipuncture / Unknown 08/30/2024 9:14 AM EDT 08/30/2024 9:32 AM EDT Willa Goel Holley LAB BLOOD ORDERABLES Anni l Result [facility] [address] [place] [address], [place] [phone] * Lipase (08/30/2024 9:14 AM EDT) Only the most recent of2 resultswithin the time period is included. Lipase 32 13 - 75 unit/L LAB CHEMISTRY METHOD 08/30/2024 10:01 AM EDT [facility] Blood Venous blood specimen / Unknown Venipuncture / Unknown 08/30/2024 9:14 AM EDT 08/30/2024 9:32 AM EDT Rooster Teethcintia Goel [employer] DO LAB BLOOD ORDERABLES Anni l Result [facility] [address] [place] [address], [place] [phone] * (ABNORMAL) Comprehensive metabolic panel (08/30/2024 9:14 AM EDT) Only the most recent of2 resultswithin the time period is included. Sodium 141 133 - 145 mmol/L LAB CHEMISTRY METHOD 08/30/2024 10:01 AM [facility] Potassium 4.5 3.5 - 5.5 mmol/L LAB CHEMISTRY METHOD 08/30/2024 10:01 AM [facility] Chloride 105 96 - 110 mmol/L LAB CHEMISTRY METHOD 08/30/2024 10:01 AM [facility] CO2 28 21 - 32 mmol/L LAB CHEMISTRY METHOD 08/30/2024 10:01 AM [facility] Anion Gap 8 3 - 11 LAB CHEMISTRY METHOD 08/30/2024 10:01 AM [facility] Glucose 129(H) 70 - 100 mg/dL LAB CHEMISTRY METHOD 08/30/2024 10:01 AM [facility] BUN 13 5 - 25 mg/dL LAB CHEMISTRY METHOD 08/30/2024 10:01 AM [facility] Creatinine 1.10 0.70 - 1.30 mg/dL LAB CHEMISTRY METHOD 08/30/2024 10:01 AM [facility] eGFR 91 >=60 mL/min/1. 73m2 LAB CHEMISTRY METHOD 08/30/2024 10:01 AM [facility] Comment:Calculation based on the??Chronic Kidney Disease Epidemiology Collaboration (CKD-EPI) equation refit??without adjustment for race. BUN/Creatinine Ratio 11.8 LAB CHEMISTRY METHOD 08/30/2024 10:01 AM [facility] Calcium 9.8 8.5 - 10.5 mg/dL LAB CHEMISTRY METHOD 08/30/2024 10:01 AM [facility] AST (SGOT) 17 10 - 42 unit/L LAB CHEMISTRY METHOD 08/30/2024 10:01 AM [facility] ALT (SGPT) 45 10 - 60 unit/L LAB CHEMISTRY METHOD 08/30/2024 10:01 AM EDT [facility] Alkaline Phosphatase 127(H) 42 - 121 unit/L LAB CHEMISTRY METHOD 08/30/2024 10:01 AM EDT [facility] Total Protein 7.7 6.0 - 8.0 g/dL LAB CHEMISTRY METHOD 08/30/2024 10:01 AM EDT [facility] Albumin 4.1 3.2 - 5.0 g/dL LAB CHEMISTRY METHOD 08/30/2024 10:01 AM EDT [facility] Total Bilirubin 0.4 0.0 - 1.4 mg/dL LAB CHEMISTRY METHOD 08/30/2024 10:01 AM EDT [facility] Blood Venous blood specimen / Unknown Venipuncture / Unknown 08/30/2024 9:14 AM EDT 08/30/2024 9:32 AM EDT Willa Holley DO LAB BLOOD ORDERABLES Anni l Result [facility] [address] [place] [address], [place] [phone] * ECG-Annotated (08/24/2024) us Provider Onbase MD ECG ORDERABLES Final Result * ECG 12 lead (08/22/2024 1:23 AM EDT) Only the most recent of2 resultswithin the time period is included. Ventricular Rate ECG 61 BPM GEMUSE Atrial Rate 61 BPM GEMUSE P-R Interval 150 ms GEMUSE QRS Duration 86 ms GEMUSE Q-T Interval 362 ms GEMUSE QTc 364 ms GEMUSE P Wave [place] 43 degrees GEMUSE R [place] 60 degrees GEMUSE T [place] 28 degrees GEMUSE ECG Interpretation Normal sinus rhythm Normal ECG When compared with ECG of 21-AUG-2024 23:12, (unconfirmed) No significant change was found Confirmed by Dwight COX JOHN ([id number]) on 08/22/2024 11:35:24 AM GEMUSE 08/22/2024 1:23 AM EDT 08/22/2024 11:35 AM EDT Mil Lam MD ECG ORDERABLES Final Result Performing Organization Address [facility] de Phone Number BETHUSE * Troponin I high sensitivity (08/22/2024 1:20 AM EDT) Only the most recent of2 resultswithin the time period is included. High Sensitivity Troponin I 6 <=79 ng/L LAB CHEMISTRY METHOD 08/22/2024 1:59 AM EDT [facility] Blood Venous blood specimen / Unknown Venipuncture / Unknown 08/22/2024 1:20 AM EDT 08/22/2024 1:30 AM EDT Narrative [facility] - 08/22/2024 1:59 AM EDT High levels of biotin in samples may falsely decrease hsTroponin values. ??Use caution when interpreting hsTroponin results in patients taking biotin who exhibit renal impairment (eGFR <60) or in patients taking more than 20 mg/day of biotin. Mil Lam MD LAB BLOOD ORDERABLES Final Resu lt Performing Organization Address [facility] de Phone Number [facility] [address] [place] [address], * XR Chest 2 Views (08/21/2024 11:54 PM EDT) Anatomical Region Laterality Modality Body Radiographic Samia ging 08/22/2024 9:23 AM EDT Impressions 08/22/2024 9:24 AM EDT Impression: No active pulmonary process identified. Telerad ZACH ([id number]) -------- FINAL REPORT -------- Dictated By: Chey Chilel Dictated Date: 08/22/2024 09:23 ET Assigned Physician: Chey Chilel Reviewed and Electronically Signed By: Chey Chilel Signed Date: 08/22/2024 09:24 ET Workstation ID: [id number] Transcribed By: Self Edit Transcribed Date: 08/22/2024 [...] No active pulmonary process identified. Telerad PA ([id number]) -------- FINAL REPORT -------- Dictated By: Chey Chilel Dictated Date: 08/22/2024 09:23 ET Assigned Physician: Chey Chilel Reviewed and Electronically Signed By: Chey Chilel Signed Date: 08/22/2024 09:24 ET Workstation ID: [id number] Transcribed By: Self Edit Transcribed Date: 08/22/2024 09:23 ET us Mil Lam MD IMG XR PROCEDURES Final Result * B-type natriuretic peptide (08/21/2024 11:18 PM EDT) BNP 9 <=100 pcg/mL LAB CHEMISTRY METHOD 08/22/2024 12:05 AM EDT [facility] Blood Venous blood specimen / Unknown Venipuncture / Unknown 08/21/2024 11:18 PM EDT 08/21/2024 11:26 PM EDT us Mil Lam MD LAB BLOOD ORDERABLES Final Resu lt Performing Organization Address [facility]/ZIP Co de Phone Number [facility] [address] [place] [address], [place] [phone] * (ABNORMAL) Magnesium (08/21/2024 11:18 PM EDT) Magnesium 1.7(L) 1.9 - 2.6 mg/dL LAB CHEMISTRY METHOD 08/21/2024 11:57 PM EDT [facility] Blood Venous blood specimen / Unknown Venipuncture / Unknown 08/21/2024 11:18 PM EDT 08/21/2024 11:25 PM EDT [facility] Raisa Lam MD LAB BLOOD ORDERABLES Final Resu lt Performing Organization Address [facility]/ZIP Co de Phone Number [facility] [address] [place] [address], [place] [phone] from Last 3 Months Insurance * Guarantor: Mike Mariano Account Type Relation to Patient Date of Phone Billing Address Personal/Family Self [address] [place] [phone] [facility] * Guarantor: Mike Mariano Account Type Relation to Patient Date of Phone Billing Address Workers Comp Self [address] [place] [address] [employer] Care Teams Embosser Operator Relationship Specialty Start Date End Date Ana Cazares NP [address] [place] [address], [address] [place] [address] PCP - General 03/20/24
== END 2024-10-15 13:07 | disposition home or self-care (01) ==
LOC: HO.PMC 12:51
PROVIDERS: PCP Student in an Organized Health Care Education/Training Program; Visit Provider Anesthesiology
DX: M47.816 Spondylosis without myelopathy or radiculopathy, lumbar region (principal); M46.1 Sacroiliitis, not elsewhere classified; M53.3 Sacrococcygeal disorders, not elsewhere classified; G89.4 Chronic pain syndrome; M51.369 Other intervertebral disc degeneration, lumbar region without mention of lumbar back pain or lower extremity pain
CPT/HCPCS: 99214

== ENCOUNTER → 2024-10-15 12:50 | Outpatient (BNVA) | payer OTHER, SELFPAY | PROVIDERS: PCP Student in an Organized Health Care Education/Training Program; Visit Provider Anesthesiology | DX: M47.816 Spondylosis without myelopathy or radiculopathy, lumbar region (principal); M46.1 Sacroiliitis, not elsewhere classified; M53.3 Sacrococcygeal disorders, not elsewhere classified; G89.4 Chronic pain syndrome; M51.369 Other intervertebral disc degeneration, lumbar region without mention of lumbar back pain or lower extremity pain | CPT/HCPCS: 99212 ==

== ENCOUNTER 2024-12-08 06:18 | Outpatient (REF) | payer OTHER, SELFPAY ==
--- NOTE | ~2024-12-08 | FL_ITS ---
EXAMINATION: FL GUIDANCE ONLY HISTORY: M47.816 - Spondylosis without myelopathy or radiculopathy, lumbar region COMPARISON: None available. TECHNIQUE: Fluoroscopy time: 0.4 minutes. Cumulative Dose: 6.17 mGy. DAP: 0.107 mGym2 Images: 8. FINDINGS: Multiple fluoroscopic spot films of the lumbar spine in the AP projection demonstrate needles and contrast material in the regions of the left L2-3, L3-4, L4-5, and L5-S1 facet joints. FL/FL guidance in treatment room IMPRESSION: Fluoroscopy during procedure. Please see procedure report for additional information. Electronically signed by: Rashard Hunt MD 12/08/2024 01:34 PM EDT
--- OUTSIDE RECORDS SUMMARY | 2024-12-08 06:19 | XMS_ITS | Clinical Summary ---
Author Organization [address] [facility] Address [address] [place] [address] Phone Care Team Providers Care Icu Staff Nurse Name Role Phone Ana Cazares NP Primary Care Provider [phone] Allergies Active Allergy Reactions Criticality Noted Date Comments Ibuprofen Swelling Medium 01/13/2024 Medications famotidine (PEPCID) 20 mg tablet Take 1 Tablet by mouth 2 times daily. Active gabapentin (NEURONTIN) 300 mg capsule Take 2 capsules (600 mg total) by mouth at bedtime. at bedtime 60 capsule 1 4 Active albuterol 2.5 mg /3 mL (0.083 %) nebulizer solution USE 1 VIAL VIA NEBULIZER CADA CUATRO A SEIS HORAS 4 Active Symbicort 160-4.5 mcg/actuation inhaler TOME DOS INHALACIONES POR V A ORAL DOS VECES AL D A 4 Active buPROPion XL (WELLBUTRIN XL) 150 mg 24 hr tablet TOME 1 TABLETA POR V A ORAL TODOS LOS D 4 Active FLUoxetine (PROzac) 10 mg capsule TOME LEON C PSULA TODOS LOS D 4 Active Combivent Respimat 20-100 mcg/actuation inhaler INHALE 1 PUFF INTO THE LUNGS EVERY 8 (EIGHT) HOURS NEEDED. 4 Active loratadine (CLARITIN) 10 mg tablet TOME 1 TABLETA POR V A ORAL TODOS LOS D 4 Active montelukast (SINGULAIR) 10 mg tablet TOME 1 TABLETA POR V A ORAL TODOS LOS D 4 Active lisinopriL (PRINIVIL,ZESTR IL) 10 mg tablet Take 1 tablet (10 mg total) by mouth daily. 5 Active oxyCODONE (ROXICODONE) 5 mg immediate release tablet Take 1 tablet (5 mg total) by mouth every 8 hours as needed. 5 Active oxyCODONE (ROXICODONE) 5 mg immediate release tablet Take 1 tablet (5 mg total) by mouth every 6 (six) hours if needed for severe pain. Max Daily Amount: 20 mg 10 tablet 5 Active Active Problems Problem Noted Date Diagnosed Date Symptomatic cholelithiasis 09/07/2024 Lumbar disc herniation with radiculopathy 2023 Overview (05/08/2024): Last Assessment & Plan: Mr. Kern showed some initial improvements after his left L4-5 MIS discectomy for huge extruded fragment on 12/30/2023. Since then, he has plateaued and his physical therapy at [facility] was put on hold because of lack [...] 10:00 AM EDT Office Visit General Surgery [address] [phone] Luis Birch, DO Status post laparoscopic cholecystectomy (Primary Dx) 09/25/2024 7:33 AM EDT Anesthesia Event [facility] OR [address] [place] [phone] Stevie Tim MD 09/25/2024 7:30 AM EDT - 09/25/2024 9:30 AM EDT Surgery [facility] OR [address] [place] [phone] Luis Birch, DO LAPAROSCPOPIC CHOLECYSTECTOMY [64335 (CPT )] 09/25/2024 5:59 AM EDT - 09/25/2024 10:33 AM EDT Hospital Encounter [facility] OR [address] [place] [phone] Luis Birch, DO Symptomatic cholelithiasis Discharge Disposition: Home or Self Care 09/08/2024 Telephone General Surgery - [address] [place] [address] Luis Birch, Prior Authorization (09/25/24 Dr. Luis Birch) from Last 3 Months Immunizations Name Administration [...] 82 10/07/2024 10:10 AM EDT Temperature 36.2 C (97.2 F) 09/25/2024 9:49 AM EDT Respiratory Rate 20 09/25/2024 9:49 AM EDT Oxygen Saturation 95% 09/25/2024 9:49 AM EDT Inhaled Oxygen Concentration - - Weight 117 kg (258 lb) 10/07/2024 10:10 AM EDT Height 172.7 cm (5' 8 ) 10/07/2024 10:10 AM EDT Body Mass Index 39.23 10/07/2024 10:10 AM EDT Plan of Treatment Health Maintenance Due Date Last Done Comments Hepatitis B Vaccines (1 of - 19+ 3-dose series) 2011 COVID-19 Vaccine (2023- season) 2024 02/03/2021, 01/13/2021 Cholesterol Screening (Lipid Panel) 03/10/2024 Depression Screening 03/10/2024 HIV Screening 03/10/2024 Social Influencers of Health Screening 03/10/2024 Influenza Vaccine (#1) 2025 , 02/13/2022, 02/02/2021, Additional history exists Hypertension/CHF/CAD Annual BMP Blood Test 08/30/2025 08/30/2024, 08/21/2024 DTaP,Tdap,and Td Vaccines (2 - Td or Tdap) 02/21/2028 02/20/2018 Hepatitis C Screening Completed 01/11/2021 Pneumococcal Vaccine: Pediatrics (0 to 5 Years) and At-Risk Patients (6 to 49 Years) Completed 05/20/2023, 02/02/2021 HIB Vaccines Aged Out No longer eligi [...] ENDOTRACHEAL(NO CHARGE) Routine 09/25/2024 7:56 AM EDT [place] LAPAROSCOPY SURGICAL CHOLECYSTECTOMY 09/25/2024 7:32 AM EDT Symptomatic cholelithiasis Special Needs 90 mins please COMPREHENSIVE METABOLIC PANEL STAT 08/30/2024 9:14 AM EDT from Last 3 Months or Most Recently Relevant to Health Maintenance Results * Tissue exam (09/25/2024 8:29 AM EDT) Final Diagnosis Gallbladder, cholecystectomy: Chronic cholecystitis with cholelithiasis and cholesterolosis. 09/28/2024 1:04 PM EDT [facility] Gross Description A. Gallbladder, : Labeled [...] and the adventitial margin is inked green. Senior Java Software Engineer sections are submitted in one cassette including gallbladder (fundus, body and neck), duct margin (inked red), and cross section adjacent to duct margin (inked blue), five pieces. ANTONI 09/28/2024 1:04 PM EDT [facility] Disclaimer Unless otherwise specified, all tissue is 10% NB formalin fixed and paraffin embedded. 09/28/2024 1:04 PM EDT [facility] Tissue Gallbladder structure / Unknown 09/25/2024 8:29 AM EDT 09/25/2024 11:49 AM EDT Luis Birch DO LAB PATHOLOGY ORDERABLES Final Result [facility] [address] [place] [address], [place] [phone] * TH AN ENDOTRACHEAL(NO CHARGE) (09/25/2024 7:56 AM EDT) Ignacio Zhou CRNA - 09/25/2024 7:56 AM EDT Ignacio Campos CRNA 09/25/2024 7:57 AM General Information and Staff Patient location during procedure: OR Performed by: Ignacio Campos CRNA Authorized by: Stevie Tim MD Intubation Airway not difficult Urgency: elective Final [...] MD ANESTHESIA ORDERABLES Final Re sult * (ABNORMAL) Comprehensive metabolic panel (08/30/2024 9:14 AM EDT) Sodium 141 133 - 145 mmol/L LAB CHEMISTRY METHOD 08/30/2024 10:01 AM EDT [facility] Potassium 4.5 3.5 - 5.5 mmol/L LAB CHEMISTRY METHOD 08/30/2024 10:01 AM EDT [facility] Chloride 105 96 - 110 mmol/L LAB CHEMISTRY METHOD 08/30/2024 10:01 AM [facility] CO2 28 21 - 32 mmol/L LAB CHEMISTRY METHOD 08/30/2024 10:01 AM [facility] Anion Gap 8 3 - 11 LAB CHEMISTRY METHOD 08/30/2024 10:01 AM [facility] Glucose 129(H) 70 - 100 mg/dL LAB CHEMISTRY METHOD 08/30/2024 10:01 AM [facility] BUN 13 5 - 25 mg/dL LAB CHEMISTRY METHOD 08/30/2024 10:01 AM [facility] Creatinine 1.10 0.70 - 1.30 mg/dL LAB CHEMISTRY METHOD 08/30/2024 10:01 AM [facility] eGFR 91 >=60 mL/min/1. 73m2 LAB CHEMISTRY METHOD 08/30/2024 10:01 AM [facility] Comment:Calculation based on the Chronic Kidney Disease Epidemiology Collaboration (CKD-EPI) equation refit without adjustment for race. BUN/Creatinine Ratio 11.8 LAB CHEMISTRY METHOD 08/30/2024 10:01 AM [facility] Calcium 9.8 8.5 - 10.5 mg/dL LAB CHEMISTRY METHOD 08/30/2024 10:01 AM [facility] AST (SGOT) 17 10 - 42 unit/L LAB CHEMISTRY METHOD 08/30/2024 10:01 AM [facility] ALT (SGPT) 45 10 - 60 unit/L LAB CHEMISTRY METHOD 08/30/2024 10:01 AM [facility] Alkaline Phosphatase 127(H) 42 - 121 unit/L LAB CHEMISTRY METHOD 08/30/2024 10:01 AM [facility] Total Protein 7.7 6.0 - 8.0 g/dL LAB CHEMISTRY METHOD 08/30/2024 10:01 AM EDT [facility] Albumin 4.1 3.2 - 5.0 g/dL LAB CHEMISTRY METHOD 08/30/2024 10:01 AM EDT [facility] Total Bilirubin 0.4 0.0 - 1.4 mg/dL LAB CHEMISTRY METHOD 08/30/2024 10:01 AM EDT [facility] Blood Venous blood specimen / Unknown Venipuncture / Unknown 08/30/2024 9:14 AM EDT 08/30/2024 9:32 AM EDT us Willa Goel Holley DO LAB BLOOD ORDERABLES Anni l Result [facility] [address] [place] [address], [place] [phone] from Last 3 Months or Most Recently Relevant to Health Maintenance Insurance * Guarantor: Mike Mariano Account Type Relation to Patient Date of Phone Billing Address Personal/Family Self [address] [place] [id number] [facility] * Guarantor: Mike Mariano Account Type Relation to Patient Date of Phone Billing Address Workers Comp Self [address] [place] [id number] [employer] * Guarantor: Mike Mariano Account Type Relation to Patient Date of Phone Billing Address Personal/Family Self 1990 [address] [place] [address] Care Teams Icu Staff Nurse Relationship Specialty Start Date End Date Ana Cazares NP [address] [place] [address], [address] [place] [id number] PCP - General 03/20/24
== END 2024-12-08 06:19 | disposition home or self-care (01) ==
LOC: CF 06:18
PROVIDERS: Visit Provider Anesthesiology
DX: M47.816 Spondylosis without myelopathy or radiculopathy, lumbar region (principal)
CPT/HCPCS: 64493; 64494; J2003; J2795; Q9967

== ENCOUNTER 2024-12-08 12:59 | Outpatient (AMB) | payer OTHER, SELFPAY ==
[2024-12-08 13:10] VITALS: BP 141/70; PULSE 83; RESP 18; O2SAT 100
--- NOTE | 2024-12-08 13:10 | MHC.OFFVIS ---
Vital Signs 12/08/24 13:10 12/08/24 13:32 Weight 260 lb BP 141/70 H 141/71 H Blood Pressure Location Lt brachial Lt brachial Position Sitting Sitting Respiration 18 18 Pulse 83 84 Pulse Source Pulse Oximeter Pulse Oximeter Pulse Oximetry (%) 100 100 Oxygen Delivery Method Room Air Room Air Intake Visit Reasons: LEFT DIAGNOSTIC L2, L3, L4, DR L5 MBB Procurement Accountant Required: Yes Procurement Accountant Services: Procurement Accountant Present Procurement Accountant Name: family Allergies ibuprofen Allergy (Unknown, Verified 10/15/24 12:57) Unknown [facility] Medical History (Updated 07/09/24 @ 16:34 by Carlos Slater MD) RLS (restless legs syndrome) Obstructive sleep apnea Lumbar disc herniation with radiculopathy Anxiety and depression GERD (gastroesophageal reflux disease) Surgical History (Updated 07/09/24 @ 14:28 by Lorenza Quiroz) H/O lumbar discectomy (~2023) Social History (Updated 07/09/24 @ 14:30 by Lorenza Quiroz) Substance Use Type: Marijuana Physical Exam Vital Signs: Last Vital Signs Pulse 84 12/08/24 13:32 Resp 18 12/08/24 13:32 BP 141/71 H 12/08/24 13:32 Pulse Ox 100 12/08/24 13:32 Oxygen Delivery Method Room Air 12/08/24 13:32 Assessment & Plan Assessment & Plan (1) Spondylosis of lumbar region without myelopathy or radiculopathy: Code(s): M47.816 - Spondylosis without myelopathy or radiculopathy, lumbar region Category: Medical Plan Diagnostic medial branch block L2, L3, L4, dorsal ramus L5 on the left. ? ?Informed consent was explained to the patient. All questions were explained and? answered.? The patient was taken inside the operating room where she was positioned prone on the operating table. Time-out was performed delineating correct site, side, the nature of the procedure, patient's allergy, . All operating room staff was participating in OR time-out procedure. ? ? The lower back was prepped with ChloraPrep and draped with sterile towels.? C-arm was brought over the operating field and sq picture of L3, L4-, L5 and S1 vertebras were delineated on the screen. .? Point of interest were delineated as confluence of superior articular process of L3, L4, and L5 vertebra on the left with corresponding transverse processes as well as confluence of the left superior articular process of the S1 vertebra with left sacral ala.The projection of the point of interest to the skin were injected with the small amount of local anesthetic lidocaine 2% mixed with ropivacaine 0.5% 1-1 approcimately 1 cc.? After that 22 gauge 3.5 inch spinal needle was driven sequentially to the points of interest in tunnel vision fashion. After needles gently contacted the bone at the point of interests the needle was injected with small amount of the contrast.? The injection of the contrast did not demonstrate any intravascular or intrathecal spread of the contrast.? After that injection of the? ropivacaine 0.5%-1cc was performed at each needle location. ?after that the needles were removed and Bandaids were applied. Orders: Orders FL guidance in treatment room Today M47.816 - Spondylosis without myelopathy or radiculopathy, lumbar region Coding Level of Care Code Procedure Only Diagnoses Spondylosis of lumbar region without myelopathy or radiculopathy M47.816
[2024-12-08 13:32] VITALS: BP 141/71; PULSE 84; RESP 18; O2SAT 100
== END 2024-12-08 13:43 | disposition home or self-care (01) ==
LOC: HO.PMCPRC 12:59
PROVIDERS: PCP Nurse Practitioner Family; Visit Provider Anesthesiology
DX: M47.816 Spondylosis without myelopathy or radiculopathy, lumbar region (principal)
CPT/HCPCS: 64493; 64494

== ENCOUNTER 2024-12-17 15:33 | Outpatient (AMB) | payer OTHER, SELFPAY ==
[2024-12-17 15:55] VITALS: BP 158/84; PULSE 78; RESP 18; O2SAT 99
--- NOTE | 2024-12-17 15:55 | A.OFFVIS_ITS ---
Vital Signs 12/17/24 15:55 Weight 263 lb BP 158/84 H Blood Pressure Location Lt brachial Position Sitting Respiration 18 Pulse 78 Pulse Source Pulse Oximeter Pulse Oximetry (%) 99 Oxygen Delivery Method Room Air Intake Visit Reasons: S/P LEFT DIAGNOSTIC L2, L3, L4, DRL5 MBB Director Radio Required: Yes Director Radio Name: family Allergies ibuprofen Allergy (Unknown, Verified 12/17/24 15:56) Unknown HPI Comments Details: Mike is back in my office still complaining on the pain in the lower back with radiation down to the left lower extremity however today he reports that his pain goes all the way down to the ankle however not to the foot. He had diagnostic sacroiliac joint injection which unfortunately did not result in any pain improvement. After that we performed diagnostic left L2, L3, L4, dorsal ramus L5 medial branch blocks, he presented today with pain diary. He documented no change in pain after the procedure. Therefore I believe we have only last resort to treat this patient's pain: His MRI is quite unimpressive however there are mild and minimal foraminal stenosis at L5-S1. Empirically thinking I will perform therapeutic transforaminal epidural steroid injection L5-S1 on the left. Prior: He complains on pain in the lower back with radiation to the left lower extremity. He reports that his pain is 8/10 and he has numbness corresponding to the pain sensation. He reports pain spreading in the lateral and posterior surfaces of the thigh and the lower leg to the level of the ankle but not below that level. 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 He was evaluated in [facility] and severe disc protrusion with spinal canal stenosis was found on the MRI at L4-[address] Ирина Gonzales performed laminotomy and diskectomy for this patient after the procedure the MRI was free from nerve root compressions, there were no spinal canal stenosis. There are some scar tissues at the area of the surgery. The full report of the MRI dictated as below. Dr. Gonzales referred patient to me with diagnosis of sacroiliitis left sacroiliac joint pain. Currently he is unemployed his case is workman's comp case. He is currently taking oxycodone 5 mg twice a day prescribed by PCP to control his pain. He reports his pain in terms of tissue damage as hurting radiating and numbing sensation. He had extensive physical therapy after surgery he had images MRI of the lumbar spine image dictation is available. He never had any injections in the past. His past medical history significant for asthma and obstructive sleep apnea. [facility] Medical History (Updated 07/09/24 @ 16:34 by Carlos Slater MD) RLS (restless legs syndrome) Obstructive sleep apnea Lumbar disc herniation with radiculopathy Anxiety and depression GERD (gastroesophageal reflux disease) Surgical History (Updated 07/09/24 @ 14:28 by Lorenza Quiroz) H/O lumbar discectomy (~2023) Social History (Updated 07/09/24 @ 14:30 by Lorenza Quiroz) Substance Use Type: Marijuana Review of Systems Const All systems reviewed & are unremarkable except as noted in HPI and below ENT Reports Normal hearing present Neuro Reports Normal hearing present, Denies Abnormal speech present, Denies confusion and Denies Sensory deficit (Neuro) Psych Denies confusion Physical Exam Vital Signs: Last Vital Signs Pulse 78 12/17/24 15:55 Resp 18 12/17/24 15:55 BP 158/84 H 12/17/24 15:55 Pulse Ox 99 12/17/24 15:55 Oxygen Delivery Method Room Air 12/17/24 15:55 Const General: no acute distress; No confusion Nutritional Appearance: overweight Orientation/consciousness: patient oriented x3 and No confusion Eyes General: appearance normal, both eyes and all related structures Pupils: Equal, round and reactive pupils present EOM: EOMs intact bilaterally Neck Neck: Yes full ROM Chest Chest palpation & inspection: normal inspection of the chest Resp Effort & Inspection: normal respiratory effort, able to speak in complete sentences, normal respiratory pattern, no audible wheezes and no cough Cardio Jugular venous distension: no JVD GI Inspection: Yes normal to inspection Back/Spine/Pelvis Other: Able to stand on bilateral tiptoes and bilateral heels, able to lift the 1st big toe in separation of the rest of the toes bilaterally, reports that left lower extremity sometimes gives up under him. SLR is equivocal on the left and negative on the right. Olayinka test, pelvic compression test, thigh thrust test, 14 finger test are all positive on the left. Those tests are negative on the right. Tenderness on palpation in projection of the mid of the sacral spine. No tenderness on palpation in the lumbar paraspinal spinal region. Loading test is positive on the left and negative on the right. Negative percussion of the lumbar spine. Valsalva maneuver does not aggravate his pain. Neuro General: patient oriented x3, gait normal and No confusion Cranial nerves: Yes CN's II-XII intact bilaterally, Yes Equal, round and reactive pupils present, Yes Normal hearing present and Yes Ability to bilaterally elevate shoulders present Speech: No Abnormal speech present Gait exam (Neuro): Normal gait present Motor exam (neuro): 5/5 motor strength present throughout Sensory Exam: No Sensory deficit (Neuro) Extrem General: No pedal edema Psych Speech and movement: Normal speech and movement present Affect: normal affect Attitude: cooperative Thought process: Normal thought process present Thought content: Normal thought content present Insight: Good insight present (Psych) Judgement: Good judgement present (Psych) Results Reviewed Results Reviewed: MRI of the lumbar spine with and without contrast 05/04/2024. Findings bones: Normal marrow signal is noted. Surgical changes that suggestive of the left-sided laminotomy at L4-5 level. Expected enhancement is noted in this region that likely represents granulation tissue. Cord: The cord appears normal. Facets minimal degenerative changes of the facet described below. Soft tissue visible soft tissues appear within normal limits. No regular enhancement is noted. Lumbar spine level: L1-L2: Appears normal without significant stenosis. L2-L3: Appears normal without significant stenosis. L3-L4: Minimal degenerative disc bulge with mild spinal canal stenosis. Minimal bilateral foraminal stenosis. L4-5: Surgical suture changes suggestive of prior left-sided laminotomy. Degenerative disc bulge and mild degenerative changes of the facets with minimal spinal canal stenosis. No irregular enhancement is noted. Degenerative changes cause minimal bilateral foraminal stenosis. L5-S1: Degenerative disc bulge with small left paracentral protrusion. Minimal hypertrophic degenerative changes of the facets. No significant spinal canal stenosis. Finding cause minimal left-sided and mild left-sided foraminal stenosis. Impression degenerative changes in the lower lumbar spine with evidence of prior left-sided laminotomy at L4-5 as described. Assessment & Plan Assessment & Plan (1) Spondylosis of lumbar region without myelopathy or radiculopathy: Code(s): M47.816 - Spondylosis without myelopathy or radiculopathy, lumbar region Category: Medical (2) Sacroiliitis: Code(s): M46.1 - Sacroiliitis, not elsewhere classified Category: Medical (3) Sacroiliac joint dysfunction of left side: Code(s): M53.3 - Sacrococcygeal disorders, not elsewhere classified Category: Medical (4) Chronic pain syndrome: Code(s): G89.4 - Chronic pain syndrome Category: Medical (5) Disc degeneration, lumbar: Code(s): M51.369 - Other intervertebral disc degeneration, lumbar region without mention of lumbar back pain or lower extremity pain Category: Medical Plan Diagnose sacroiliac joint injection resulted in no pain improvement. The left- sided L2, L3, L4, dorsal ramus L5 medial branch block did not improve patient's condition either he reported pain 8/10 throughout the postprocedural time. I offered him as a last resort transforaminal L5-S1 epidural steroid injection, I will evaluate him after the procedure, if there is no pain improvement I will consider [employer] spinal cord stimulator to treat his pain. Coding Level of Care Code Est Pt Level 3 (21680) Diagnoses Spondylosis of lumbar region without myelopathy or radiculopathy M47.816 Sacroiliitis M46.1 Sacroiliac joint dysfunction of left side M53.3 Chronic pain syndrome G89.4 Disc degeneration, lumbar M51.369
--- OUTSIDE RECORDS SUMMARY | 2024-12-17 16:07 | XMS_ITS | Clinical Summary ---
Author Organization [facility] Address [address] [place] [address] Phone Care Team Providers Care Workers' Compensation Claims Supervisor Name Role Phone Ana Cazares NP Primary Care Provider [phone] Allergies Active Allergy Reactions Criticality Noted Date [...] has plateaued and his physical therapy at [facility] was put on hold because of lack [...] 10:00 AM EDT Office Visit General Surgery [address] [phone] Luis Birch, DO Status post laparoscopic cholecystectomy (Primary Dx) 09/25/2024 7:33 AM EDT Anesthesia Event [facility] [place] [address] [place] [phone] Stevie Tim MD 09/25/2024 7:30 AM EDT - 09/25/2024 9:30 AM EDT Surgery [facility] [place] [address] [place] [phone] Luis Birch, DO LAPAROSCPOPIC CHOLECYSTECTOMY [[id number] (CPT )] 09/25/2024 5:59 AM EDT - 09/25/2024 10:33 AM EDT Hospital Encounter [facility] [place] [address] [place] [phone] Luis Birch, DO Symptomatic cholelithiasis Discharge Disposition: Home or Self Care from Last 3 Months Immunizations Name Administration [...] - 19+ 3-dose series) 2011 COVID-19 Vaccine ( season) 2024 02/03/2021, 01/13/2021 Cholesterol Screening (Lipid Panel) 03/10/2024 HIV Screening 03/10/2024 Social Influencers of Health Screening 03/10/2024 Depression Screening 06/03/2024 Influenza Vaccine (#1) 2025 , 02/13/2022, 02/02/2021, [...] ENDOTRACHEAL(NO CHARGE) Routine 09/25/2024 7:56 AM EDT [place] LAPAROSCOPY SURGICAL CHOLECYSTECTOMY 09/25/2024 7:32 AM EDT Symptomatic cholelithiasis Special Needs 90 mins please COMPREHENSIVE METABOLIC PANEL STAT 08/30/2024 9:14 AM EDT from Last 3 Months or Most Recently Relevant to Health Maintenance Results * Tissue exam (09/25/2024 8:29 AM EDT) Final Diagnosis Gallbladder, cholecystectomy: Chronic cholecystitis with cholelithiasis and cholesterolosis. 09/28/2024 1:04 PM EDT [facility] Gross Description A. [...] and the adventitial margin is inked green. [employer] Form sections are submitted in one cassette including gallbladder (fundus, body and neck), duct margin (inked red), and cross section adjacent to duct margin (inked blue), five pieces. ANTONI 09/28/2024 1:04 PM EDT [facility] Disclaimer Unless otherwise specified, all tissue is 10% NB formalin fixed and paraffin embedded. 09/28/2024 1:04 PM EDT [facility] Tissue Gallbladder structure / Unknown 09/25/2024 8:29 AM EDT 09/25/2024 11:49 AM EDT us Luis Birch DO LAB PATHOLOGY ORDERABLES Final Result [facility]) [facility] [address] [place] [address], [place] [phone] * TH AN ENDOTRACHEAL(NO CHARGE) (09/25/2024 7:56 [...] difficulty assessment: 1 - vent by mask Stevie Tim MD ANESTHESIA ORDERABLES Final Re sult * (ABNORMAL) Comprehensive metabolic panel (08/30/2024 9:14 AM EDT) Sodium 141 133 - 145 mmol/L LAB CHEMISTRY METHOD 08/30/2024 10:01 AM EDT [facility] Potassium 4.5 3.5 - 5.5 mmol/L LAB CHEMISTRY METHOD 08/30/2024 10:01 AM EDT [facility] Chloride 105 96 - 110 mmol/L LAB CHEMISTRY METHOD 08/30/2024 10:01 AM EDT [facility] CO2 28 21 - 32 mmol/L LAB CHEMISTRY METHOD 08/30/2024 10:01 AM [facility] Anion Gap 8 3 - 11 LAB CHEMISTRY METHOD 08/30/2024 10:01 AM [facility] Glucose 129(H) 70 - 100 mg/dL LAB CHEMISTRY METHOD 08/30/2024 10:01 AM [facility] BUN 13 5 - 25 mg/dL LAB CHEMISTRY METHOD 08/30/2024 10:01 AM [facility] Creatinine 1.10 0.70 - 1.30 mg/dL LAB CHEMISTRY METHOD 08/30/2024 10:01 AM [facility] eGFR 91 >=60 mL/min/1. 73m2 LAB CHEMISTRY METHOD 08/30/2024 10:01 AM [facility] Comment:Calculation based on the Chronic Kidney Disease Epidemiology Collaboration (CKD-EPI) equation refit without adjustment for race. BUN/Creatinine Ratio 11.8 LAB CHEMISTRY METHOD 08/30/2024 10:01 AM [facility] Calcium 9.8 8.5 - 10.5 mg/dL LAB CHEMISTRY METHOD 08/30/2024 10:01 AM [facility] AST (SGOT) 17 10 - 42 unit/L LAB CHEMISTRY METHOD 08/30/2024 10:01 AM [facility] ALT (SGPT) 45 10 - 60 unit/L LAB CHEMISTRY METHOD 08/30/2024 10:01 AM [facility] Alkaline Phosphatase 127(H) 42 - 121 unit/L LAB CHEMISTRY METHOD 08/30/2024 10:01 AM [facility] Total Protein 7.7 6.0 - 8.0 g/dL LAB CHEMISTRY METHOD 08/30/2024 10:01 AM [facility] Albumin 4.1 3.2 - 5.0 g/dL LAB CHEMISTRY METHOD 08/30/2024 10:01 AM [facility] Total Bilirubin 0.4 0.0 - 1.4 mg/dL LAB CHEMISTRY METHOD 08/30/2024 10:01 AM EDT [facility] Blood Venous blood specimen / Unknown Venipuncture / Unknown 08/30/2024 9:14 AM EDT 08/30/2024 9:32 AM EDT us Willa Holley DO LAB BLOOD ORDERABLES Anni l Result [facility] [address] [place] [address], [place] [phone] from Last 3 Months or Most Recently Relevant to Health Maintenance Insurance * Guarantor: Mike Mariano Account Type Relation to Patient Date of Phone Billing Address Personal/Family Self [address] [place] [phone] [facility] * Guarantor: Mike Mariano Account Type Relation to Patient Date of Phone Billing Address Workers Comp Self [address] [place] [address] [employer] Member Subscriber Plan / Payer (Ef fective 2023-Present) Name:Mike Mariano Member ID:-[id number] Relation to Subscriber:Employee Name:MIKE MARIANO Subscriber ID:-[id number] Date of :1990 (Home) (Work) Address: [address] [place] [address] Payer ID:[id number] Group ID:Not on file Type:Not on file Address: [address] [place] [address] * Guarantor: Mike Mariano Account Type Relation to Patient Date of Phone Billing Address Personal/Family Self [address] [place] [address] Care Teams Workers' Compensation Claims Supervisor Relationship Specialty Start Date End Date Ana Cazares NP [address] [place] [address], [address] [place] [phone] PCP - General 03/20/24
== END 2024-12-17 16:02 | disposition home or self-care (01) ==
LOC: HO.PMC 15:34
PROVIDERS: PCP Nurse Practitioner Family; Visit Provider Anesthesiology
DX: M47.816 Spondylosis without myelopathy or radiculopathy, lumbar region (principal); M46.1 Sacroiliitis, not elsewhere classified; M53.3 Sacrococcygeal disorders, not elsewhere classified; G89.4 Chronic pain syndrome; M51.369 Other intervertebral disc degeneration, lumbar region without mention of lumbar back pain or lower extremity pain
CPT/HCPCS: 99213

== ENCOUNTER → 2024-12-17 15:33 | Outpatient (BNVA) | payer OTHER, SELFPAY | PROVIDERS: PCP Nurse Practitioner Family; Visit Provider Anesthesiology | DX: M47.816 Spondylosis without myelopathy or radiculopathy, lumbar region (principal); M46.1 Sacroiliitis, not elsewhere classified; M53.3 Sacrococcygeal disorders, not elsewhere classified; M51.369 Other intervertebral disc degeneration, lumbar region without mention of lumbar back pain or lower extremity pain; G89.4 Chronic pain syndrome | CPT/HCPCS: 99212 ==

== ENCOUNTER 2025-04-13 06:17 | Outpatient (REF) | payer OTHER, SELFPAY ==
--- NOTE | ~2025-04-13 | FL_ITS ---
EXAMINATION: XR FLUOROSCOPY WITH IMAGES CLINICAL INFORMATION: Spondylosis COMPARISON: None available. TECHNIQUE: Fluoroscopy time: 33 seconds DAP: 12 mGycm2 Images: 2 FINDINGS: Fluoroscopy provided for procedure. Needle projected along the left side of the L5 vertebral body, with contrast injected in this region. FL/FL guidance in treatment room IMPRESSION: Fluoroscopy provided for procedure. See procedure report for details. Electronically signed by: Jonathan Sher MD 04/14/2025 12:47 PM [facility]
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
--- OUTSIDE RECORDS SUMMARY | 2025-04-13 06:19 | XMS_ITS | Encounter Summary ---
Author Organization [facility] Address [address] [facility] [address] [place] [address] Phone Care Team Providers Care Auto Collision Repair Instructor Name Role Phone Ana Cazares Primary Care Provider [phone] Encounter Details Date Type Department Care Team ([facility] st Contact Info) Description 03/19/2025 Orders Only [facility] Specimen Processing [address] [place] [address] Ana Cazares FNP [address] [facility], [address] [place] [address] Social History Tobacco Use Types Packs/Day Years Used Date Smoking Tobacco: Never Smokeless Tobacco: Never Alcohol Use Standard Drinks/Week Comments Not Currently [...] your housing situation today? I have reny chacon 02/13/2022 How many times have you move [...] on file Sexual Orientation Not on file documented as of this encounter Plan of Treatment Not on file documented as of this encounter Visit Diagnoses Not on filedocumented in this encounter Additional Health Concerns Assessment Noted Time PHQ-2 Depression Total Score: 6 05/13/20 24 2:54 PM EST documented as of this encounter Care Teams Auto Collision Repair Instructor Relationship Specialty Start Date End Date Ana Cazares Shara, MOTION PICTURE COMMENTATOR [address] [place] [address], [address] [place] [address] [email or web address] PCP - General Family Medicine 12/09/20 documented as of this encounter Additional Source Comments The information contained in this document represents components of the legal health record. It is not the complete legal health record.[facility]
--- OUTSIDE RECORDS SUMMARY | 2025-04-13 06:19 | XMS_ITS | Encounter Summary ---
Author Organization [facility] Address [address] [place] [address] [place] [address] Phone Care Team Providers Care Senior Integration Architect Name Role Phone Ana Cazares [facility] Primary Care Provider [phone] Reason for Visit * Reason Onset Date Comments Fax labs 01/25/2025 Encounter Details Date Type Department Care Team ([facility] st Contact Info) Description 01/25/2025 Telephone [facility] [address] [place] [address] Ana Cazares [facility] [address] [facility] [address] [place] [address] [email or web address] Fax labs Social History Tobacco Use Types Packs/Day Years [...] on file documented as of this encounter Progress Notes * Karen West - 01/25/2025 9:35 AM EDT CD PEN Top Smart Phrases: Fax Request Name of caller, if not the patient, AND where they are calling from: Randi Name of Facility fax is being sent to: Sleep medicine [facility] Document(s) requested: Labs done on 08/30/2024 and 08/21/2024- Alejandro Walton Fax Number: [facility] [phone] CSS Agent (Please do not reply to this user, as this inbox is not monitored. Thank you.) Thank you. documented in this encounter Plan of Treatment Not on file documented as of this encounter Visit Diagnoses Not on filedocumented in this encounter Additional Health Concerns Assessment Noted Time PHQ-2 Depression Total Score: 6 05/13/20 24 2:54 PM EST documented as of this encounter Care Teams Senior Integration Architect Relationship Specialty Start Date End Date Ana Cazares November, FINANCIAL SERVICE REP [address] [place] [address], [address] [place] [address] [email or web address] PCP - General Family Medicine 12/09/20 documented as of this encounter Additional Source Comments The information contained in this document represents components of the legal health record. It is not the complete legal health record.[facility]
--- OUTSIDE RECORDS SUMMARY | 2025-04-13 06:19 | XMS_ITS | Encounter Summary ---
Author Organization [facility] Address [address] [facility] [address] [place] [address] Phone Care Team Providers Care Paint Trimmer Pipe Bowls Name Role Phone Ana Cazares Shara COSTELLO Primary Care Provider [phone] Encounter Details Date Type Department Care Team ([facility] st Contact Info) Description 03/11/2025 Orders Only [facility] [address] [place] [address] Provider, MD Olivia [address] [place], [place] [id number] Social History Tobacco Use Types Packs/Day Years [...] on file documented as of this encounter Procedures Procedure Name Priority Date/Time Associated Diagnosis Comments TOXICOLOGY SCREEN, URINE Routine 03/11/2025 1:26 PM EDT documented in this encounter Results * Toxicology screen, urine (03/11/2025 1:26 PM EDT) Urine us Historical Provider LAB URINE ORDERABLES Anni l Result documented in this encounter Visit Diagnoses Not on filedocumented in this encounter Additional Health Concerns Assessment Noted Time PHQ-2 Depression Total Score: 6 05/13/20 24 2:54 PM EST documented as of this encounter Care Teams Paint Trimmer Pipe Bowls Relationship Specialty Start Date End Date CatieAna snow November, ASSISTANT GOLF PROFESSIONAL [address] [place] [address], [address] [place] [address] [email or web address] PCP - General Family Medicine 12/09/20 documented as of this encounter Additional Source Comments The information contained in this document represents components of the legal health record. It is not the complete legal health record.[facility]
== END 2025-04-13 06:18 | disposition home or self-care (01) ==
LOC: CF 06:17
PROVIDERS: Visit Provider Anesthesiology
DX: M54.16 Radiculopathy, lumbar region (principal)
CPT/HCPCS: 64483; J2003; J3301; Q9967

== ENCOUNTER 2025-04-13 11:06 | Outpatient (AMB) | payer OTHER, SELFPAY ==
[2025-04-13 11:08] VITALS: BP 165/77; PULSE 96; RESP 16; O2SAT 97; BMI 40.0
--- NOTE | 2025-04-13 11:08 | A.OFFVIS_ITS ---
Vital Signs 04/13/25 11:08 04/13/25 11:41 Height 5 ft 8 in Weight 263 lb BMI 40.0 BP 165/77 H 148/85 H Blood Pressure Location Lt brachial Lt brachial Position Sitting Sitting Respiration 16 16 Pulse 96 86 Pulse Source Pulse Oximeter Pulse Oximeter Pulse Oximetry (%) 97 96 Oxygen Delivery Method Room Air Room Air Intake Visit Reasons: Left L5-S1 TFESI (20mg Kenalog) Allergies ibuprofen Allergy (Unknown, Verified 12/17/24 15:56) Unknown [facility] Medical History (Updated 04/13/25 @ 12:27 by Carlos Slater MD) RLS (restless legs syndrome) Obstructive sleep apnea Lumbar disc herniation with radiculopathy Anxiety and depression GERD (gastroesophageal reflux disease) Surgical History (Updated 07/09/24 @ 14:28 by Lorenza Quiroz) H/O lumbar discectomy (~2023) Social History (Updated 07/09/24 @ 14:30 by Lorenza Quiroz) Substance Use Type: Marijuana Physical Exam Vital Signs: Last Vital Signs Pulse 86 04/13/25 11:41 Resp 16 04/13/25 11:41 BP 148/85 H 04/13/25 11:41 Pulse Ox 96 04/13/25 11:41 Oxygen Delivery Method Room Air 04/13/25 11:41 BMI result Body Mass Index 40.0 Assessment & Plan Assessment & Plan (1) Radiculopathy, lumbar region: Code(s): M54.16 - Radiculopathy, lumbar region Category: Medical Plan Left L5-S1 transforaminal epidural steroid injection. Patient came to the room after obtaining informed consent were risks and cee efits were carefully explained to him using interpreting services of his significant other. He was positioned prone on operating table and his lower back was prepped with ChloraPrep and draped with sterile self adhesive utility towels. The time-out was performed delineating name and date of of the patient side and site of the procedure allergies of the patient. C-arm was brought over the operating field and sq picture of the L5 vertebra was demonstrated on the screen. Initially left superior articular process of S1 was chosen as the target of the needle advancement. The lateral border of the superior articular process of S1 projection to the skin was injected with small amount of lidocaine 1% forming a skin wheal. After that 22 gauge 5 in needle was inserted through the skin wheal and advanced to were the lateral border of the superior articular process of S1 on the left in tunnel vision fashion. When tip of the needle gently contacted the target the needle was deviated slightly lateral advanced 3 mm and deviated medial. Patient started to complain on pain radiating down the left lower extremity and needle was withdrawn. After that the target was changed for lowest point of the silhouette of the pedicle on the oblique view. The injection of the local anesthetic 1% lidocaine was performed 3 mm below the lowest point of the pedicle. The needle was inserted through the skin wheal and it was advanced to were the left L5-S1 foramina in tunnel vision fashion. When tip of the needle gently contacted the bone below the foramina injection of the contrast was performed delineating epidural spread of the contrast. After that injection of the treatment solution of lidocaine 1% preservative-free mixed with Kenalog 40 mg was performed into the needle. The patient tolerated the procedure well. The needle was withdrawn and Band-Aid was applied. He was taken outside of the operating room to recovery room where he recovered uneventfully. Orders: Orders FL guidance in treatment room Today M47.816 - Spondylosis without myelopathy or radiculopathy, lumbar region Coding Level of Care Code Procedure Only Diagnoses Radiculopathy, lumbar region M54.16
[2025-04-13 11:41] VITALS: BP 148/85; PULSE 86; RESP 16; O2SAT 96
== END 2025-04-13 11:44 | disposition home or self-care (01) ==
LOC: HO.PMCPRC 11:06
PROVIDERS: PCP Nurse Practitioner Family; Visit Provider Anesthesiology
DX: M46.1 Sacroiliitis, not elsewhere classified (principal)
CPT/HCPCS: 64483

== ENCOUNTER 2025-05-12 14:39 | Outpatient (AMB) | payer OTHER, SELFPAY ==
--- NOTE | 2025-05-12 14:54 | MHC.OFFVIS ---
Vital Signs 05/12/25 14:57 Height 5 ft 8 in Weight 263 lb BMI 40.0 BP 133/72 Blood Pressure Location Lt brachial Position Sitting Respiration 16 Pulse 86 Pulse Source Pulse Oximeter Pulse Oximetry (%) 97 Oxygen Delivery Method Room Air Intake Visit Reasons: S/P Left L5-S1 TFESI Linux Systems Administrator Required: No Accompanied by: [employer] Allergies ibuprofen Allergy (Unknown, Verified 05/12/25 14:58) Unknown HPI Comments Details: Miek is back in my office still complaining on the pain in the lower back with radiation down to the left lower extremity . He is here after transforaminal epidural steroid injection L5-S1. He reported no pain improvement after the injection. Therefore the only 1 option is left for this patient is to go for psychological evaluation and after that consider spinal cord stimulator. He is not very eager to go for spinal cord stimulator procedure. I explained to the patient that this is on the table for him in the time he wants to still consider this procedure I will treat his pain with [employer] spinal cord stimulator. Prior: . He had diagnostic sacroiliac joint injection which unfortunately did not result in any pain improvement. After that we performed diagnostic left L2, L3, L4, dorsal ramus L5 medial branch blocks, he presented today with pain diary. He documented no change in pain after the procedure. Therefore I believe we have only last resort to treat this patient's pain: His MRI is quite unimpressive however there are mild and minimal foraminal stenosis at L5-S1. Empirically thinking I will perform therapeutic transforaminal epidural steroid injection L5-S1 on the left. Prior: He complains on pain in the lower back with radiation to the left lower extremity. He reports that his pain is 8/10 and he has numbness corresponding to the pain sensation. He reports pain spreading in the lateral and posterior surfaces of the thigh and the lower leg to the level of the ankle but not below that level. 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 He was evaluated in [facility] and severe disc protrusion with spinal canal stenosis was found on the MRI at L4-[address] Ирина Gonzales performed laminotomy and diskectomy for this patient after the procedure the MRI was free from nerve root compressions, there were no spinal canal stenosis. There are some scar tissues at the area of the surgery. The full report of the MRI dictated as below. Dr. Gonzales referred patient to me with diagnosis of sacroiliitis left sacroiliac joint pain. Currently he is unemployed his case is workman's comp case. He is currently taking oxycodone 5 mg twice a day prescribed by PCP to control his pain. He reports his pain in terms of tissue damage as hurting radiating and numbing sensation. He had extensive physical therapy after surgery he had images MRI of the lumbar spine image dictation is available. He never had any injections in the past. His past medical history significant for asthma and obstructive sleep apnea. [facility] Medical History (Updated 04/13/25 @ 12:27 by Carlos Slater MD) RLS (restless legs syndrome) Obstructive sleep apnea Lumbar disc herniation with radiculopathy Anxiety and depression GERD (gastroesophageal reflux disease) Surgical History (Updated 07/09/24 @ 14:28 by Lorenza Quiroz) H/O lumbar discectomy (~2023) Social History (Updated 07/09/24 @ 14:30 by Lorenza Quiroz) Substance Use Type: Marijuana Review of Systems Const All systems reviewed & are unremarkable except as noted in HPI and below ENT Reports Normal hearing present Neuro Reports Normal hearing present, Denies Abnormal speech present, Denies confusion and Denies Sensory deficit (Neuro) Psych Denies confusion Physical Exam Vital Signs: Last Vital Signs Pulse 86 05/12/25 14:57 Resp 16 05/12/25 14:57 BP 133/72 05/12/25 14:57 Pulse Ox 97 05/12/25 14:57 Oxygen Delivery Method Room Air 05/12/25 14:57 BMI result Body Mass Index 40.0 Const General: no acute distress; No confusion Nutritional Appearance: overweight Orientation/consciousness: patient oriented x3 and No confusion Eyes General: appearance normal, both eyes and all related structures Pupils: Equal, round and reactive pupils present EOM: EOMs intact bilaterally Neck Neck: Yes full ROM Chest Chest palpation & inspection: normal inspection of the chest Resp Effort & Inspection: normal respiratory effort, able to speak in complete sentences, normal respiratory pattern, no audible wheezes and no cough Cardio Jugular venous distension: no JVD GI Inspection: Yes normal to inspection Back/Spine/Pelvis Other: Able to stand on bilateral tiptoes and bilateral heels, able to lift the 1st big toe in separation of the rest of the toes bilaterally, reports that left lower extremity sometimes gives up under him. SLR is equivocal on the left and negative on the right. Olayinka test, pelvic compression test, thigh thrust test, 14 finger test are all positive on the left. Those tests are negative on the right. Tenderness on palpation in projection of the mid of the sacral spine. No tenderness on palpation in the lumbar paraspinal spinal region. Loading test is positive on the left and negative on the right. Negative percussion of the lumbar spine. Valsalva maneuver does not aggravate his pain. Neuro General: patient oriented x3, gait normal and No confusion Cranial nerves: Yes CN's II-XII intact bilaterally, Yes Equal, round and reactive pupils present, Yes Normal hearing present and Yes Ability to bilaterally elevate shoulders present Speech: No Abnormal speech present Gait exam (Neuro): Normal gait present Motor exam (neuro): 5/5 motor strength present throughout Sensory Exam: No Sensory deficit (Neuro) Extrem General: No pedal edema Psych Speech and movement: Normal speech and movement present Affect: normal affect Attitude: cooperative Thought process: Normal thought process present Thought content: Normal thought content present Insight: Good insight present (Psych) Judgement: Good judgement present (Psych) Assessment & Plan Assessment & Plan (1) Spondylosis of lumbar region without myelopathy or radiculopathy: Code(s): M47.816 - Spondylosis without myelopathy or radiculopathy, lumbar region Category: Medical (2) Sacroiliitis: Code(s): M46.1 - Sacroiliitis, not elsewhere classified Category: Medical (3) Sacroiliac joint dysfunction of left side: Code(s): M53.3 - Sacrococcygeal disorders, not elsewhere classified Category: Medical (4) Chronic pain syndrome: Code(s): G89.4 - Chronic pain syndrome Category: Medical (5) Disc degeneration, lumbar: Code(s): M51.369 - Other intervertebral disc degeneration, lumbar region without mention of lumbar back pain or lower extremity pain Category: Medical Plan Diagnostic left sacroiliac joint injection resulted in no pain improvement. The left-sided diagnose L2, L3, L4, dorsal ramus L5 medial branch block did not improve patient's condition either he reported pain 8/10 throughout the postprocedural time. Transforaminal epidural steroid injection left L5-S1 the only site where he had changes on the MRI resulted in no pain improvement. I offered him for treatment of his postlaminectomy syndrome to consider spinal cord stimulator [employer]. He is not very eager to go for this procedure. I recommended him to think about it. I explained to him psychological evaluation needs to be done before the trial. The patient has the psychiatrist. He was given a template for psychiatrist to fill up to approve him for trial of spinal cord stimulator from psychological standpoint. Coding Level of Care Code Est Pt Level 3 (35296) Diagnoses Spondylosis of lumbar region without myelopathy or radiculopathy M47.816 Sacroiliitis M46.1 Sacroiliac joint dysfunction of left side M53.3 Chronic pain syndrome G89.4 Disc degeneration, lumbar M51.369
[2025-05-12 14:57] VITALS: BP 133/72; PULSE 86; RESP 16; O2SAT 97; BMI 40.0
--- OUTSIDE RECORDS SUMMARY | 2025-05-12 23:00 | XMS_ITS | Clinical Summary ---
Author Organization [address] [facility] Address [address] [place] [address] Phone Care Team Providers Care Steam Blocker Name Role Phone Ana Cazares NP Primary Care Provider [phone] Allergies Active Allergy Reactions Criticality Noted Date [...] Overview (05/08/2024): Last Assessment & Plan: Mr. eKrn showed some initial improvements after his left L4-5 MIS discectomy for huge extruded fragment on 12/30/2023. Since then, he has plateaued and his physical therapy at [facility] was put on hold because of [...] Orientation Straight 09/25/2024 6: 46 AM EDT Last Filed Vital Signs Vital Sign Reading [...] Screening 03/10/2024 Depression Screening 06/03/2024 COVID-19 Vaccine (2024- season) 2025 02/03/2021, 01/13/2021 Influenza Vaccine (#1) [...] mmol/L LAB CHEMISTRY METHOD 08/30/2024 10:01 AM [facility] Potassium 4.5 3.5 - 5.5 mmol/L LAB CHEMISTRY METHOD 08/30/2024 10:01 AM [facility] Chloride 105 96 - 110 mmol/L LAB CHEMISTRY METHOD 08/30/2024 10:01 AM [facility] CO2 28 21 - 32 mmol/L LAB CHEMISTRY METHOD 08/30/2024 10:01 AM [facility] Anion Gap 8 3 - 11 LAB CHEMISTRY METHOD 08/30/2024 10:01 AM [facility] Glucose 129(H) 70 - 100 mg/dL LAB CHEMISTRY METHOD 08/30/2024 10:01 AM [facility] BUN 13 5 - 25 mg/dL LAB CHEMISTRY METHOD 08/30/2024 10:01 AM [facility] Creatinine 1.10 0.70 - 1.30 mg/dL LAB CHEMISTRY METHOD 08/30/2024 10:01 AM [facility] eGFR 91 >=60 mL/min/1. 73m2 LAB CHEMISTRY METHOD 08/30/2024 10:01 AM [facility] Comment:Calculation based on the Chronic Kidney Disease Epidemiology Collaboration (CKD-EPI) equation refit without adjustment for race. BUN/Creatinine Ratio 11.8 LAB CHEMISTRY METHOD 08/30/2024 10:01 AM [facility] Calcium 9.8 8.5 - 10.5 mg/dL LAB CHEMISTRY METHOD 08/30/2024 10:01 AM [facility] AST (SGOT) 17 10 - 42 unit/L LAB CHEMISTRY METHOD 08/30/2024 10:01 AM [facility] ALT (SGPT) 45 10 - 60 unit/L LAB CHEMISTRY METHOD 08/30/2024 10:01 AM [facility] Alkaline Phosphatase 127(H) 42 - 121 unit/L LAB CHEMISTRY METHOD 08/30/2024 10:01 AM [facility] Total Protein 7.7 6.0 - 8.0 g/dL LAB CHEMISTRY METHOD 08/30/2024 10:01 AM [facility] Albumin 4.1 3.2 - 5.0 g/dL LAB CHEMISTRY METHOD 08/30/2024 10:01 AM [facility] Total Bilirubin 0.4 0.0 - 1.4 mg/dL LAB CHEMISTRY METHOD 08/30/2024 10:01 AM [facility] Blood Venous blood specimen / Unknown Venipuncture / Unknown 08/30/2024 9:14 AM EDT 08/30/2024 9:32 AM EDT Willa Holley DO LAB BLOOD ORDERABLES Anni slade Result [facility] [address] [place] [address], [place] [phone] from Last 3 Months or Most Recently Relevant to Health Maintenance Insurance * Guarantor: Mike Mariano Account Type Relation to Patient Date of Phone Billing Address Personal/Family Self [address] [place] [address] [place] [facility] Userlike Live Chat INSURANCE Lalina Care Teams Steam Blocker Relationship Specialty Start Date End Date Ana Cazares NP [address] [place] [address], [address] [place] [id number] PCP - General 03/20/24
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
== END 2025-05-12 15:24 | disposition home or self-care (01) ==
LOC: HO.PMC 14:40
PROVIDERS: PCP Nurse Practitioner Family; Visit Provider Anesthesiology
DX: M47.816 Spondylosis without myelopathy or radiculopathy, lumbar region (principal); M46.1 Sacroiliitis, not elsewhere classified; M53.3 Sacrococcygeal disorders, not elsewhere classified; G89.4 Chronic pain syndrome; M51.369 Other intervertebral disc degeneration, lumbar region without mention of lumbar back pain or lower extremity pain
CPT/HCPCS: 99213

== ENCOUNTER → 2025-05-12 14:39 | Outpatient (BNVA) | payer OTHER, SELFPAY | PROVIDERS: PCP Nurse Practitioner Family; Visit Provider Anesthesiology | DX: M51.362 Other intervertebral disc degeneration, lumbar region with discogenic back pain and lower extremity pain (principal); M47.816 Spondylosis without myelopathy or radiculopathy, lumbar region; M46.1 Sacroiliitis, not elsewhere classified; M53.3 Sacrococcygeal disorders, not elsewhere classified; G89.4 Chronic pain syndrome | CPT/HCPCS: 99212 ==